=== PATIENT | female | born 2000 | race Caucasian/White ===

== ENCOUNTER → 2018-06-27 | Outpatient (CLI) | payer MEDICAID ==
--- NOTE | 2018-06-27 14:41 | Diagnostic Imaging Report ---
INDICATION: survey. Patient has prior history of inadequate care. TECHNIQUE: Multiple real-time grayscale images were obtained over the gravid uterus. COMPARISON: None FINDINGS: There is a single live fetus in a cephalic presentation. heart rate was recorded at 144 beats per minute. Placenta is anterior. Amniotic fluid volume is normal. survey demonstrates kidneys, bladder and stomach to be unremarkable. brain is unremarkable. There is a four-chamber heart. The spine is unremarkable. There is a three-vessel cord. Cord insertion was not well seen. Biometrical measurements are as follows: Biparietal 7.9 cm, age 31 weeks 4 days. Head circumference 28.4 cm, age 31 weeks 2 days. Abdominal circumference 27.7 cm, age 31 weeks 5 days. Femur length 6.0 cm, age 31 weeks 1 days. Sonographic estimate age: 31 weeks 3 days. Sonographic estimated date of delivery: 08/26/18. Estimated Weight: 1772 gm (+/- 259 gm). LMP percentile: 20%. heart rate: 144 beats per minute. number: 1 of 1. IMPRESSION: Single live IUP approximately 31 weeks 3 days gestational age with estimated date of confinement sonographically of 08/26/2018. No complicating features are seen. survey is unremarkable with exception of the cord insertion not well visualized. Dictated by: Dictated on workstation # [id number]
== END ==
LOC: RAD 13:05
PROVIDERS: ATTEND Obstetrics & Gynecology
DX: Z36.89 Encounter for other specified antenatal screening (principal); Z3A.31 31 weeks gestation of pregnancy
CPT/HCPCS: 76805

== ENCOUNTER 2018-08-09 00:30 | Outpatient (CLI) | payer MEDICAID ==
[~2018-08-09] VITALS: Ht 157.5 cm; Wt 63.6 kg
[2018-08-10] MEDS ORDERED: ACHD5005 PO ×2 (20:07)
[2018-08-10] MEDS ORDERED: Benzocaine/Menthol TP ×2 (20:07)
[2018-08-10] MEDS ORDERED: DOCU100C37 PO ×2 (20:07)
[2018-08-10] MEDS ORDERED: FERR325T18 PO ×2 (20:07)
[2018-08-10] MEDS ORDERED: IBUP-844 PO ×2 (20:07)
[2018-08-10] MEDS ORDERED: DIBU30OI TOP ×2 (20:07)
--- NOTE | 2018-08-13 15:01 | Physician Query-Final Dx ---
TAYLOR DAVENPORT 08/13/18 1501: Clinic Account Progress/Dx Physician Query: Please give diagnosis Date of Service Aug 09, 2018 at 00:30 PRESLEY MA MD 08/14/18 1247: Clinic Account Progress/Dx DIAGNOSIS: Diagnosis False labor at 35 weeks gestation TAYLOR DAVENPORT Aug 13, 2018 15:01 PRESLEY MA MD Aug 14, 2018 12:47
== END 2018-08-09 03:00 | disposition home or self-care (01) ==
LOC: WSo 00:30 → LDRP 00:31 → WSo 03:00
PROVIDERS: ATTEND Obstetrics & Gynecology
DX: O47.03 False labor before 37 completed weeks of gestation, third trimester (principal); Z3A.35 35 weeks gestation of pregnancy
CPT/HCPCS: 99214

== ENCOUNTER 2018-08-10 15:45 | Inpatient (IN) | payer MEDICAID ==
[2018-08-10] VITALS (7 sets, daily range): BP systolic 123–138; BP diastolic 56–96
[2018-08-10] MEDS ORDERED: D5 LR IV SOLUTION 1,000 ML IV SCH (17:18)
[2018-08-10 18:03] LABS: BASOPHILS % (AUTO) 0 % (0-10); EOSINOPHILS # (AUTO) 0.2 10^3/uL (0.0-0.3); EOSINOPHILS % (AUTO) 1 % (0-10); HEMATOCRIT 34 % (35-52); HEMOGLOBIN 11.7 G/DL (11.5-16.0); LYMPHOCYTES # (AUTO) 2.3 X 10^3 (1.0-4.0); LYMPHOCYTES % (AUTO) 11 % (12-44); MEAN CORPUSCULAR HEMOGLOBIN 30 PG (25-34); MEAN CORPUSCULAR HGB CONC 35 G/DL (32-36); MEAN CORPUSCULAR VOLUME 86 FL (80-99); MEAN PLATELET VOLUME 10.7 FL (7.4-10.4); MONOCYTES # (AUTO) 1.9 X 10^3 (0.0-1.0); MONOCYTES % (AUTO) 9 % (0-12); NEUTROPHILS # (AUTO) 15.7 X 10^3 (1.8-7.8); NEUTROPHILS % (AUTO) 78 % (42-75); PLATELET COUNT 322 10^3/uL (130-400); RED BLOOD COUNT 3.94 10^6/uL (4.35-5.85); RED CELL DISTRIBUTION WIDTH 14.3 % (10.0-14.5); WHITE BLOOD COUNT 20.1 10^3/uL (4.3-11.0)
--- NOTE | 2018-08-10 18:24 | History & Physical-OB ---
OB - Chief Complaint & HPI Date/Time Date of Admission: 08/10/2018 Date of Admission: Date seen by a Provider: Aug 10, 2018 Time Seen by a Provider: 18:21 Chief Complaint/History OB-Reason for Admission/Chief: Onset of Labor Hx : 1 Hx Para: 0 Expected Date of Delivery: Aug 21, 2018 Gestational Age in Weeks: 38 Gestational Age in Days: 2 Admission Nurse Assessment Rev: Yes History of Labs O pos Antibody neg RI RPR NR HBsAg NR HCsAg NR GC neg GBS neg Allergies and Home Medications Allergies Coded Allergies: No Known Drug Allergies (Unverified , 08/09/18) Home Medications No Active Prescriptions or Reported Meds Patient Home Medication List Home Medication List Reviewed: Yes OB - History Hx of Present Care: No (late care at 28 weeks) Ultrasounds: Normal mid trimester US Obstetrical Complications: None Medical Complications: Other (tobacco and majijuana use) Patient Past Medical History n/a OB - Admission Exam Physical Exam HEENT: NCAT Heart: Rhythm Normal Lungs: Clear Abdomen: Gravid Extremities: Normal Reflexes: Normal Cervical Dilatation: 4cm Effacement: 100% Station: -1 Membranes: Intact Heart Rate: 130's Accelerations: Accelerations Present Decelerations: No Decelerations Short Term Variability: Present Wraparound Facilitator Variability: Average (6-25) Contractions on Admission: 6-10 Minutes Apart Intensity: Moderate Labs Laboratory Tests Test 08/10/18 17:53 Range/Units White Blood Count 20.1 H 4.3-11.0 10^3/uL Red Blood Count 3.94 L 4.35-5.85 10^6/uL Hemoglobin 11.7 11.5-16.0 G/DL Hematocrit 34 L 35-52 % Mean Corpuscular Volume 86 80-99 FL Mean Corpuscular Hemoglobin 30 25-34 PG Mean Corpuscular Hemoglobin Concent 35 32-36 G/DL Red Cell Distribution Width 14.3 10.0-14.5 % Platelet Count 322 130-400 10^3/uL Mean Platelet Volume 10.7 H 7.4-10.4 FL Neutrophils (%) (Auto) 78 H 42-75 % Lymphocytes (%) (Auto) 11 L 12-44 % Monocytes (%) (Auto) 9 0-12 % Eosinophils (%) (Auto) 1 0-10 % Basophils (%) (Auto) 0 0-10 % Neutrophils # (Auto) 15.7 H 1.8-7.8 X 10^3 Lymphocytes # (Auto) 2.3 1.0-4.0 X 10^3 Monocytes # (Auto) 1.9 H 0.0-1.0 X 10^3 Eosinophils # (Auto) 0.2 0.0-0.3 10^3/uL Basophils # (Auto) 0.0 0.0-0.1 10^3/uL OB - Assessment/Plan/Diagnosis Assessment Assessment: active labor Admission Dx 38 week IUP Active labor Admission Status: Inpatient Order (span 2 midnights) Reason for Inpatient Admission: 38 week IUP Active labor GBS neg Tobacco and THC use Plan Plan: Expectant Management Induction Method: ARACELY EDWARDS DO Aug 10, 2018 6:24 pm
[2018-08-10 18:37] LABS: BAND NEUTROPHILS 0 %; BASOPHILS % (MANUAL) 0 %; EOSINOPHILS % (MANUAL) 0 %; LYMPHOCYTES % (MANUAL) 12 %; MONOCYTES % (MANUAL) 7 %; NEUTROPHILS % (MANUAL) 81 %; RBC MORPH NORMAL
[2018-08-10] MEDS ORDERED: fentaNYL INJECTION 100 MCG/2 ML AMP IVP PRN (18:45)
[2018-08-10] MEDS ORDERED: LIDOCAINE/EPI 2% 1:200,00 (XYLOCAINE) 10 ML VIAL ONE (19:13)
[2018-08-10] MEDS ORDERED: OXYTOCIN/NORMAL SALINE 500 ML IV ONE (19:13)
[2018-08-10] MEDS: OXYTOCIN/NORMAL SALINE 500 ML IV SCH ×2 (19:51→23:55)
--- OUTSIDE RECORDS SUMMARY | 2018-08-10 19:57 | XMS REPORT ---
Author Author DAWIT FRYE [facility] eClinicalWorks Address Unknown Phone Unavailable Care Team Providers Care Respiratory Therapy Aide Name Role Phone DAWIT FRYE CP Unavailable Allergies, Adverse Reactions, Alerts Substance Reaction Event Type N.K.D.A. Info Not Available Non Drug Allergy Problems Problem Type Condition Code Onset Dates Condition Status Problem Bipolar depression F31.30 Active Problem Anxiety F41.9 Active Problem ADHD (attention deficit hyperactivity disorder) F90.9 Active Assessment BCP ( control pills) initiation Z30.011 Active Problem Environmental allergies Z91.09 Active Problem BCP ( control pills) initiation Z30.011 Active Medications Medication Code System Code Instructions Start Date End Date Status Dosage Loratadine [facility] [address]-06 10 mg Orally Once a day 1 tablet BusPIRone HCl [facility] [address]-21 10 MG Orally Twice a day [address] [facility] [address]-41 50 MG Orally Once a day June 19, 2015 1 tablet at bedtime Ortho Tri-Cyclen (28) [facility] [address]-57 0.18/0.215/0.25 MG-35 MCG Orally Once a day Oct 08, [address] [facility] [address]-[address] Calvert to sign for Elaine TAKE ONE CAPSULE BY MOUTH ONCE DAILY IN THE MORNING Procedures Procedure Coding System Code Date URINE TEST CPT-4 28859 Oct 08, 2015 Vital Signs Date/Time: Oct 08, 2015 Temperature 98.1 F BMIPercentile 73.74 % Weight 127.9 lbs Height 62 in BMI 23.39 Index Blood Pressure Diastolic 60 mmHg Blood Pressure Systolic 98 mmHg Cardiac Monitoring Heart Rate 94 bpm Wt Percentile 60.15 % Ht Percentile 19.64 % Results Name Result Date Reference Range Unit Abnormality Flag TEST, URINE (IN HOUSE) Summary Purpose eClinicalWorks Submission
--- OUTSIDE RECORDS SUMMARY | 2018-08-10 19:57 | XMS REPORT ---
Author Author PAXTON DALTON Organization eClinical[employer] Address Unknown Phone Unavailable Care Team Providers Care Big Data Lead Name Role Phone PAXTON DALTON CP Unavailable Allergies No Known Allergies Problems Problem Type Condition Code Onset Dates Condition Status Problem Bipolar depression F31.30 Active Problem Anxiety F41.9 Active Problem ADHD (attention deficit hyperactivity disorder) F90.9 Active Problem Environmental allergies Z91.09 Active Problem BCP ( control pills) initiation Z30.011 Active Medications Medication Code System Code Instructions Start Date End Date Status Dosage Vyvanse [facility] [address]-95 30 MG orally once daily TAKE ONE CAPSULE BY MOUTH ONCE DAILY IN THE MORNING Results No Known Results Summary Purpose eClinicalWorks Submission
--- OUTSIDE RECORDS SUMMARY | 2018-08-10 19:57 | XMS REPORT ---
Author Author ARACELY JEAN Organization [facility] Address [address] [place] [address] Care Team Providers Care Senior Cytogenetic Technologist Name Role Phone ARACELY JEAN Unavailable PROBLEMS Type Condition ICD9-CM Code GGV23-EC Code Onset Dates Condition Status SNOMED Code Problem Anxiety F41.9 Active 55188819 Problem Environmental allergies Z91.09 Active 993685765 Problem BCP ( control pills) initiation Z30.011 Active 12797170 Problem ADHD (attention deficit hyperactivity disorder) F90.9 Active 963219381 Problem Bipolar depression F31.30 Active 29542389 ALLERGIES No Information ENCOUNTERS Encounter Location Date Diagnosis [place] [address] [address] Jun, Acute sinusitis, recurrence not specified, unspecified location J01.90 [place] [address] [address] Jun, Acute sinusitis, recurrence not specified, unspecified location J01.90 and Allergic rhinitis, unspecified seasonality, unspecified trigger J30.9 [place] [address] [place] [id number] [place] [address] Jul, [place] [address] [address] Feb, [place] [address] [address] Jan, [place] [address] [address] Dec, [place] [address] [address] Nov, Attention-deficit hyperactivity disorder, combined type F90.2 ; Unspecified mood [affective] disorder F39 and Generalized anxiety disorder F41.1 [place] [address] [place] [id number] [place] [address] Nov, [place] [address] [place] [id number] [place] [address] Oct, [place] [address] [place] [id number] [place] [address] Oct, [place] [address] [place] [id number] [place] [address] Sep, BCP ( control pills) initiation Z30.[address] [address] Sep, [place] [address] [place] [id number] [place] [address] Jul, TDAP DX V06.1 ; Insect bite 919.4 and Cellulitis 682.9 [place] [address] [place] [id number] [place] [address] Jun, Bipolar I disorder 296.7 ; ADHD (attention deficit hyperactivity disorder), combined type 314.01 and Generalized anxiety disorder 300.02 [place] [address] [place] [address] May, Bipolar affective, mixed 296.60 ; ADHD (attention deficit hyperactivity disorder), 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 and Generalized anxiety disorder 300.02 [place] [address] [place] [address] May, [place] [address] [place] [id number] [place] [address] May, [place] [address] [place] [id number] [place] [address] May, Episodic mood disorder 296.90 ; 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 ; Hallucinogen dependence, 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 ; Cannabis abuse 305.20 ; Alcohol abuse 305.00 and No condition on [place] II V71.09 [facility] [address] [facility] [id number] [place] [address] May, ADHD (attention deficit hyperactivity disorder) 314.01 ; Anxiety 300.00 ; Bipolar affective disorder 296.80 and Allergic rhinitis 477.9 IMMUNIZATIONS No Known Immunizations SOCIAL HISTORY Never Assessed REASON FOR VISIT Requests return call PLAN OF CARE VITAL SIGNS MEDICATIONS Medication Instructions Dosage Frequency Start Date End Date Duration Status Amoxicillin 875 MG Orally every 12 hrs 1 tablet 12h Jun, Jun, 10 day(s) Active RESULTS No Results PROCEDURES No Known procedures INSTRUCTIONS MEDICATIONS ADMINISTERED No Known Medications MEDICAL (GENERAL) HISTORY Type Description Date Medical History ADHD Medical History BIPOLAR Medical History ANXIETY Medical History Seasonal allergies Hospitalization History 2010 Hospitalization History [facility] 2010
--- OUTSIDE RECORDS SUMMARY | 2018-08-10 19:57 | XMS REPORT ---
Author Author SAEID PALOMARES Organization eClinicalWorks Address Unknown Phone Unavailable Care Team Providers Care Embossing Press Operator Apprentice Name Role Phone SAEID PALOMARES Unavailable Allergies No Known Allergies Problems No Known Problems Medications Medication Code System Code Instructions Start Date End Date Status Dosage Vyvanse [facility] [address]-[address] Calvert to sign for Elaine TAKE ONE CAPSULE BY MOUTH ONCE DAILY IN THE MORNING Results No Known Results Summary Purpose eClinicalWorks Submission
--- OUTSIDE RECORDS SUMMARY | 2018-08-10 19:57 | XMS REPORT ---
Author Author MARKIE URENA [facility] eClinicalWorks Address Unknown Phone Unavailable Care Team Providers Care Manager Float Name Role Phone MARKIE URENA CP Unavailable Allergies No Known Allergies Problems Problem Type Condition Code Onset Dates Condition Status Problem Bipolar depression F31.30 Active Problem Anxiety F41.9 Active Problem ADHD (attention deficit hyperactivity disorder) F90.9 Active Problem Environmental allergies Z91.09 Active Problem BCP ( control pills) initiation Z30.011 Active Medications Medication Code System Code Instructions Start Date End Date Status Dosage Vyvanse [facility] [address]-53 30 MG orally once daily TAKE ONE CAPSULE BY MOUTH ONCE DAILY IN THE MORNING Adderall XR [facility] [address]-27 10 MG Orally Once a day AT 1400 Dec 07, 2015 1 capsule Results No Known Results Summary Purpose eClinicalWorks Submission
--- OUTSIDE RECORDS SUMMARY | 2018-08-10 19:57 | XMS REPORT ---
Author Author SAEID PALOMARES Organization eClinicalWorks Address Unknown Phone Unavailable Care Team Providers Care Barrel Rifler Button Name Role Phone SAEID PALOMARES CP Unavailable Allergies, Adverse Reactions, Alerts Substance Reaction Event Type N.K.D.A. Info Not Available Non Drug Allergy Problems Problem Type Condition ICD-9 Code Onset Dates Condition Status Assessment ADHD (attention deficit hyperactivity disorder), combined type 314.01 Active Assessment Generalized anxiety disorder 300.02 Active Assessment Bipolar I disorder 296.7 Active Medications Medication Code System Code Instructions Start Date End Date Status Dosage Seroquel [facility] [address]-78 50 MG Orally Once a day June 19, 2015 1 tablet at bedtime Loratadine [facility] [address]-33 10 mg Orally Once a day 1 tablet Minipress [facility] [address]-31 1 MG Orally HS 3 capsule Lutera [facility] [address]-82 0.1-20 MG-MCG Orally Once a day 1 tablet Vyvanse [facility] [address]-93 30 MG Orally Once a day 1 capsule in the morning BusPIRone HCl [facility] [address]-45 10 MG Orally Twice a day 1 tablet Procedures Procedure Coding System Code Date Office Visit, Est Pt., Level 3 CPT-4 03280 Jul 16, 2015 Vital Signs Date/Time: Jul 16, 2015 Cardiac Monitoring Heart Rate 100 bpm Weight 126.8 lbs Height 62 in Ht Percentile 19.88 % BMI 23.19 Index Blood Pressure Diastolic 64 mmHg Blood Pressure Systolic 96 mmHg BMIPercentile 73.04 % Wt Percentile 59.24 % Results No Known Results Summary Purpose eClinicalWorks Submission
--- OUTSIDE RECORDS SUMMARY | 2018-08-10 19:57 | XMS REPORT ---
Author Author PAXTON DALTON Organization eClinicalWorks Address Unknown Phone Unavailable Care Team Providers Care Mammographer Name Role Phone PAXTON DALTON CP Unavailable Allergies No Known Allergies Problems Problem Type Condition Code Onset Dates Condition Status Problem Bipolar depression F31.30 Active Problem Anxiety F41.9 Active Problem ADHD (attention deficit hyperactivity disorder) F90.9 Active Problem Environmental allergies Z91.09 Active Problem BCP ( control pills) initiation Z30.011 Active Medications Medication Code System Code Instructions Start Date End Date Status Dosage Vyvanse [facility] [address]-08 30 MG orally once daily TAKE ONE CAPSULE BY MOUTH ONCE DAILY IN THE MORNING Results No Known Results Summary Purpose eClinicalWorks Submission
--- OUTSIDE RECORDS SUMMARY | 2018-08-10 19:57 | XMS REPORT ---
Author Author CINDI BURGESS [facility] Address [address] [place] [address] Care Team Providers Care Human Resources Project Manager Name Role Phone CINDI BURGESS Unavailable PROBLEMS Type Condition ICD9-CM Code ZEV05-FM Code Onset Dates Condition Status SNOMED Code Problem ADHD (attention deficit hyperactivity disorder) F90.9 Active 184891208 Problem Bipolar depression F31.30 Active 54436395 Problem BCP ( control pills) initiation Z30.011 Active 86521168 Problem Anxiety F41.9 Active 27186460 Problem Environmental allergies Z91.09 Active 318346829 ALLERGIES Unknown Allergies SOCIAL HISTORY No smoking Hx information available PLAN OF CARE VITAL SIGNS MEDICATIONS Unknown Medications RESULTS No Results PROCEDURES No Known procedures IMMUNIZATIONS No Known Immunizations
--- OUTSIDE RECORDS SUMMARY | 2018-08-10 19:57 | XMS REPORT ---
Author Author ARACELY JEAN Organization [facility] Address [address] [place] [address] Care Team Providers Care Data Warehouse Specialist Name Role Phone ARACELY JEAN Unavailable PROBLEMS Type Condition ICD9-CM Code VIM48-PO Code Onset Dates Condition Status SNOMED Code Problem Anxiety F41.9 Active 33356361 Problem Environmental allergies Z91.09 Active 146636867 Problem BCP ( control pills) initiation Z30.011 Active 81892101 Problem ADHD (attention deficit hyperactivity disorder) F90.9 Active 613547946 Problem Bipolar depression F31.30 Active 39951986 ALLERGIES No Known Allergies ENCOUNTERS Encounter Location Date Diagnosis [facility] [address] [address] Jun, Acute sinusitis, recurrence not specified, unspecified location J01.90 [place] [address] [address] Jun, Acute sinusitis, recurrence not specified, unspecified location J01.90 and Allergic rhinitis, unspecified seasonality, unspecified trigger J30.9 [place] [address] [place] [id number] [place] [address] Jul, [facility] [address] [place] [id number] [place] [address] Feb, [place] [address] [place] [id number] [place] [address] Jan, [place] [address] [address] Dec, [place] [address] [place] [id number] [place] [address] Nov, Attention-deficit hyperactivity disorder, combined type F90.2 ; Unspecified mood [affective] disorder F39 and Generalized anxiety disorder F41.1 [place] [address] [place] [address] Nov, [facility] [address] [place] [id number] [place] [address] Oct, [place] [address] [place] [id number] [place] [address] Oct, [place] [address] [place] [id number] [place] [address] Sep, BCP ( control pills) initiation Z30.[address] [address] Sep, [place] [address] [place] [id number] [place] [address] Jul, TDAP DX V06.1 ; Insect bite 919.4 and Cellulitis 682.9 [place] [address] [place] [id number] [place] [address] Jun, Bipolar I disorder 296.7 ; ADHD (attention deficit hyperactivity disorder), combined type 314.01 and Generalized anxiety disorder 300.02 [place] [address] [place] [address] May, Bipolar affective, mixed 296.60 ; ADHD (attention deficit hyperactivity disorder), 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 and Generalized anxiety disorder 300.02 [facility] [address] [place] [address] May, [place] [address] [place] [id number] [place] [address] May, [place] [address] [place] [id number] [place] [address] May, Episodic mood disorder 296.90 ; 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 ; Hallucinogen dependence, 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 ; Cannabis abuse 305.20 ; Alcohol abuse 305.00 and No condition on [place] II V71.09 [facility] [address] [facility] [id number] [address] May, ADHD (attention deficit hyperactivity disorder) 314.01 ; Anxiety 300.00 ; Bipolar affective disorder 296.80 and Allergic rhinitis 477.9 IMMUNIZATIONS No Known Immunizations SOCIAL HISTORY Never Assessed REASON FOR VISIT cough/sinus infection, constant nasal drainage, productive cough, brown/green sputum, wheezing x 4 days, denies fever----LakeshiattRGeraldine, 31 weeks , sees Dr. Parekh PLAN OF CARE Activity Details Follow Up prn Reason:sinus infection VITAL SIGNS Height 62 in 2018-06-21 Weight 126 lbs 2018-06-21 Temperature 98.1 degrees Fahrenheit 2018-06-21 Heart Rate 90 bpm 2018-06-21 Respiratory Rate 20 2018-06-21 BMI 23.04 kg/m2 2018-06-21 Blood pressure systolic 104 mmHg 2018-06-21 Blood pressure diastolic 70 mmHg 2018-06-21 MEDICATIONS Medication Instructions Dosage Frequency Start Date End Date Duration Status Zyrtec Allergy 10 mg Orally Once a day 1 tablet 24h Jun, Jul, 30 day(s) Active Flonase Allergy Relief 50 MCG/ACT Nasally Once a day 1 spray in each nostril 24h Jun, 30 day(s) Active RESULTS No Results PROCEDURES No Known procedures INSTRUCTIONS MEDICATIONS ADMINISTERED No Known Medications MEDICAL (GENERAL) HISTORY Type Description Date Medical History ADHD Medical History BIPOLAR Medical History ANXIETY Medical History Seasonal allergies Hospitalization History 2010 Hospitalization History [facility] 2010
--- OUTSIDE RECORDS SUMMARY | 2018-08-10 19:57 | XMS REPORT ---
Author Author PAXTON DALTON [facility] eClinicalWorks Address Unknown Phone Unavailable Care Team Providers Care Soil Biology Teacher Name Role Phone PAXTON DALTON Unavailable Allergies, Adverse Reactions, Alerts Substance Reaction Event Type N.K.D.A. Info Not Available Non Drug Allergy Problems Problem Type Condition ICD-9 Code Onset Dates Condition Status Assessment Insect bite 919.4 Active Assessment Cellulitis 682.9 Active Assessment TDAP DX V06.1 Active Medications Medication Code System Code Instructions Start Date End Date Status Dosage Vyvanse [facility] [address]-53 30 MG Orally Once a day 1 capsule in the morning Minipress [facility] [address]-12 1 MG Orally HS 3 capsule Loratadine [facility] [address]-67 10 mg Orally Once a day 1 tablet Lutera [facility] [address]-45 0.1-20 MG-MCG Orally Once a day 1 tablet Bactrim DS [facility] [address]-20 800-160 MG Orally 2 times a day Jul 21, 2015 Jul 31, 2015 1 tablet Seroquel [facility] [address]-21 50 MG Orally Once a day June 19, 2015 1 tablet at bedtime BusPIRone HCl [facility] [address]-15 10 MG Orally Twice a day 1 tablet Procedures Procedure Coding System Code Date THER/PROPH/DIAG INJ, SC/IM CPT-4 27809 Jul 21, 2015 TDAP (BOOSTRIX) CPT-4 68516 Jul 21, 2015 ROCEPHIN 1 GM (IM) CPT-4 J0696 Jul 21, 2015 Office Visit, Est Pt., Level 3 CPT-4 70269 Jul 21, 2015 Vital Signs Date/Time: Jul 21, 2015 Temperature 97.9 F BMIPercentile 70.04 % Weight 124.8 lbs Height 62 in BMI 22.82 Index Blood Pressure Diastolic 72 mmHg Blood Pressure Systolic 98 mmHg Cardiac Monitoring Heart Rate 100 bpm Wt Percentile 55.58 % Ht Percentile 19.88 % Results No Known Results Immunizations Vaccine Administration Date TDAP (BOOSTRIX) Jul 21, 2015 Summary Purpose eClinicalWorks Submission
--- OUTSIDE RECORDS SUMMARY | 2018-08-10 19:58 | XMS REPORT ---
Author Author SYLVIA NIETO Organization [employer] Address Unknown Phone Unavailable Care Team Providers Care Painter Interior Finish Name Role Phone SYLVIA NIETO CP Unavailable Allergies, Adverse Reactions, Alerts Substance Reaction Event Type N.K.D.A. Info Not Available Non Drug Allergy Problems Problem Type Condition Code Onset Dates Condition Status Assessment Generalized anxiety disorder F41.1 Active Problem Bipolar depression F31.30 Active Problem Anxiety F41.9 Active Problem ADHD (attention deficit hyperactivity disorder) F90.9 Active Assessment Attention-deficit hyperactivity disorder, combined type F90.2 Active Assessment Unspecified mood [affective] disorder F39 Active Problem Environmental allergies Z91.09 Active Problem BCP ( control pills) initiation Z30.011 Active Medications Medication Code System Code Instructions Start Date End Date Status Dosage Loratadine [facility] [address]-72 10 mg Orally Once a day 1 tablet BusPIRone HCl [facility] [address]-59 15 MG Orally Twice a day 1 tablet Seroquel [facility] [address]-68 50 MG Orally Once a day AT HS June 19, 2015 1 tablet at bedtime Vyvanse [facility] [address]-19 30 MG orally once daily TAKE ONE CAPSULE BY MOUTH ONCE DAILY IN THE MORNING Adderall XR [facility] [address]-93 10 MG Orally Once a day AT 1400 Dec 07, 2015 1 capsule Procedures Procedure Coding System Code Date Office Visit, Est Pt., Level 5 CPT-4 90340 Dec 07, 2015 Vital Signs Date/Time: Dec 07, 2015 Temperature 98.4 F BMIPercentile 54.4 % Weight 117.4 lbs Height 62 in BMI 21.47 Index Blood Pressure Diastolic 58 mmHg Blood Pressure Systolic 94 mmHg Cardiac Monitoring Heart Rate 104 bpm Wt Percentile 38.26 % Ht Percentile 19.5 % Results No Known Results Summary Purpose [employer] Submission
--- OUTSIDE RECORDS SUMMARY | 2018-08-10 19:58 | XMS REPORT ---
Author Author SAEID PALOMARES Organization [employer] Address Unknown Phone Unavailable Care Team Providers Care Industrial Relations Officer Name Role Phone SAEID PALOMARES Unavailable Allergies No Known Allergies Problems Problem Type Condition Code Onset Dates Condition Status Problem Bipolar depression F31.30 Active Problem Anxiety F41.9 Active Problem ADHD (attention deficit hyperactivity disorder) F90.9 Active Problem Environmental allergies Z91.09 Active Problem BCP ( control pills) initiation Z30.011 Active Medications Medication Code System Code Instructions Start Date End Date Status Dosage Amyyvlorenzoe [facility] [address]-52 30 MG orally once daily TAKE ONE CAPSULE BY MOUTH ONCE DAILY IN THE MORNING Results No Known Results Summary Purpose [employer] Submission
--- NOTE | 2018-08-10 20:05 | OB Labor & Delivery Record ---
L&D History Date of Service Date of Service: Aug 10, 2018 History Expected Date of Delivery: Aug 21, 2018 Gestational Age in Weeks: 38 Hx : 1 Hx Para: 0 Complications Events: Routine care (late pnc) Operative Indications (Cesarea: N/A-Vaginal Delivery Intrapartal Events: None L&D Stage1 Stage One Onset of Labor - Date: Aug 10, 2018 Monitors and Tracing Monitor Mode: External Heart Rate: 120 Monitor Decelerations: None Station: -1 Award Machine Operator Variability: Average (6-10) Short Term Variability: Present Presentation: Vertex Vital Signs VS - Last 72 Hours, by Label 08/10/18 08/10/18 18:15 18:45 Temp 97.8 Pulse 101 92 Resp 20 20 B/P (MAP) 136/94 (108) 125/91 (102) O2 Delivery Room Air Room Air Rupture of Membranes Spontaneous Ruture of Membrane: No Amniotic Membrane Rupture Time: 1809 Amniotic Membrane Fluid Desc.: Clear Vaginal Bleeding Description: Normal Show Progress/Notes Patient progressed with no other augmentation than AROM. 1 mg dilaudid was given one time for pain control L&D Stage2 Stage Two Stage II Date: Aug 10, 2018 Monitors and Tracing Monitor Mode: External Heart Rate: 120 Monitor Accelerations: Uniform Monitor Decelerations: Variable Award Machine Operator Variability: Average (6-10) Short Term Variability: Present Position: Right Occiput Anterior Presentation: Vertex Cord Descript/Complications Cord Vessel Description: 3 Vessels Delivery Type Delivery Method: Spontaneous Vaginal Anterior Shoulder: Left Episiotomy/Perineal Laceration Laceraction(s)/Extensions: Yes Episiotomy Description: Right Mediolateral Degree (describe repair) RML repaired in usual fashion using 3-0 and 2-0 vicryl suture Condition of Delivery 1 minute Comment: 8 5 minute Comment: 9 Notes live female infant weight 6lbs 5oz Condition of Condition of Infant: Living Exam: No Observed Abnormalities Resuscitation Resuscitation: N/A - Spontaneous Resp L&D Stage3 Stage Three Stage III Date: Aug 10, 2018 Pictocin Pitocin Administration Comment: wide open 30 mu at delivery of placenta Placenta Delivery Placenta Delivery: Spontaneous Delivery Summary Summary Estimated blood loss (mL): 350 Attending at delivery: Aracely Puentes DO Condition of Delivery Examined: Cervix Examined, Uterus Explored Post Hemorrhage: No Condition of Mother stable Condition of Infant (s) stable ARACELY PUENTES DO Aug 10, 2018 20:05
--- NOTE | 2018-08-10 20:06 | Discharge Inst-Women's Service ---
Discharge Inst-Women's Serv Depart Medication/Instructions New, Converted or Re-Newed RX: RX on Chart Final Diagnosis PPD 2 NVD Consults/Follow Up Additional Follow Up: Yes Orders/Referrals Dr. Puentes in 6 weeks Activity Activity: Activity as Tolerated Driving Instructions: No Driving for 1 Week NO SMOKING: NO SMOKING Nothing Inside Vagina: No Douching, No [place], No Tampons Diet Discharge Diet: No Restrictions Symptoms to Report to : Bleeding Excessive, Pain Increased, Fever Over 101 Degrees F, Vaginal Bleeding Increase, Questions/Concerns For Any Problems or Questions: Contact Your Physician ARACELY PUENTES DO Aug 10, 2018 20:06
[2018-08-10] MEDS ORDERED: DIBU30OI TOP ×2 (20:07)
[2018-08-10] MEDS ORDERED: IBUP-844 PO ×2 (20:07)
[2018-08-10] MEDS ORDERED: FERR325T18 PO ×2 (20:07)
[2018-08-10] MEDS ORDERED: Benzocaine/Menthol TP ×2 (20:07)
[2018-08-10] MEDS ORDERED: ACHD5005 PO ×2 (20:07)
[2018-08-10] MEDS ORDERED: DOCU100C37 PO ×2 (20:07)
[2018-08-10] MEDS ORDERED: TETANUS,DIPTH,PERTUSS P/F (BOOSTRIX) 0.5 ML VIAL IM ONE (20:15)
[2018-08-10] MEDS ORDERED: WITCH HAZEL(TUCKS) 40 EA JAR TOP PRN (20:15)
[2018-08-10] MEDS ORDERED: DIBUCAINE (NUPERCAINAL) 1% OINT 30 GM TOP PRN (20:15)
[2018-08-10] MEDS ORDERED: MEASLES,MUMPS,RUBELLA 1 EA INJ SQ ONE (20:15)
[2018-08-10] MEDS ORDERED: BENZOCAINE/MENTHOL (DERMOPLAST) 56 ML CAN TP PRN (20:15)
[2018-08-10] MEDS: IBUPROFEN 600 MG (MOTRIN) TAB PO SCH (20:21)
[2018-08-10] MEDS ORDERED: CATHETER FLUSH 10 ML SYR IV SCH ×2 (22:00)
[2018-08-10] MEDS ORDERED: METHYLERGONOVINE 0.2 MG/ML (METHERGINE) AMP ONE (23:44)
[2018-08-11] MEDS ORDERED: METHYLERGONOVINE 0.2 MG/ML (METHERGINE) AMP IM ONE (00:45)
[2018-08-11] MEDS: HYDROcodone/APAP 5 MG/325 MG (LORTAB) TAB PO PRN ×2 (00:57→19:21)
[2018-08-11] MEDS: IBUPROFEN 600 MG (MOTRIN) TAB PO SCH ×4 (02:00→22:09)
[2018-08-11 06:12] LABS: BASOPHILS % (AUTO) 0 % (0-10); EOSINOPHILS # (AUTO) 0.2 10^3/uL (0.0-0.3); EOSINOPHILS % (AUTO) 1 % (0-10); HEMATOCRIT 25 % (35-52); LYMPHOCYTES # (AUTO) 3.4 X 10^3 (1.0-4.0); LYMPHOCYTES % (AUTO) 18 % (12-44); MEAN CORPUSCULAR HEMOGLOBIN 31 PG (25-34); MEAN CORPUSCULAR HGB CONC 36 G/DL (32-36); MEAN CORPUSCULAR VOLUME 87 FL (80-99); MEAN PLATELET VOLUME 10.9 FL (7.4-10.4); MONOCYTES # (AUTO) 1.7 X 10^3 (0.0-1.0); MONOCYTES % (AUTO) 9 % (0-12); NEUTROPHILS # (AUTO) 13.7 X 10^3 (1.8-7.8); NEUTROPHILS % (AUTO) 72 % (42-75); PLATELET COUNT 243 10^3/uL (130-400); RED BLOOD COUNT 2.91 10^6/uL (4.35-5.85); RED CELL DISTRIBUTION WIDTH 13.8 % (10.0-14.5); WHITE BLOOD COUNT 19.1 10^3/uL (4.3-11.0)
[2018-08-11 08:29] VITALS: BP 121/80
[2018-08-11] MEDS: PRENATAL VITAMIN 1 EA TAB PO SCH (08:32)
[2018-08-11] MEDS: FERROUS SULF 325 MG (IRON) TAB PO SCH (08:32)
[2018-08-11] MEDS: DOCUSATE SODIUM 100 MG (COLACE) CAP PO SCH ×2 (08:32→09:11)
--- NOTE | 2018-08-11 08:47 | Progress Note-Standard ---
Standard Progress Note Progress Notes/Assess & Plan Date Seen by a Provider: Aug 11, 2018 Time Seen by a Provider: 08:46 Progress/Assessment & Plan This patient is without complaint. She is ambulating, voiding, tolerating oral intake well, has good pain control. Patient denies chest pain, denies shortness of breath, denies nausea vomiting, denies headache. Patient is requesting discharge home. Vital Signs 08/11/18 08:29 Temp 99.2 Pulse 76 Resp 18 B/P (MAP) 121/80 (94) Pulse Ox 100 O2 Delivery Room Air Vital signs are stable. Patient is afebrile. Fundus is firm below the umbilicus and nontender. Extremities show no clubbing cyanosis. There is no Homans sign. Assessment and plan day number 1 status post term spontaneous vaginal delivery doing well. Plan is for routine convalescence care with discharge home today or tomorrow as preferred by patient Final Diagnosis Term spontaneous vaginal delivery PRESLEY MA MD Aug 11, 2018 8:47 am
[2018-08-11 15:05] VITALS: BP 126/83
[2018-08-11] MEDS ORDERED: FLU QUADRIvalent (5+ YOA) 2018-2019 (AFLURIA) 0.5 ML IM ONE (17:00)
[2018-08-11 22:09] VITALS: BP 131/81
[2018-08-12] MEDS: DOCUSATE SODIUM 100 MG (COLACE) CAP PO SCH ×2 (01:52→09:50)
[2018-08-12 03:54] VITALS: BP 122/77
[2018-08-12] MEDS: IBUPROFEN 600 MG (MOTRIN) TAB PO SCH ×2 (03:54→09:49)
--- NOTE | 2018-08-12 09:27 | Progress Note-Standard ---
Standard Progress Note Progress Notes/Assess & Plan Date Seen by a Provider: Aug 12, 2018 Time Seen by a Provider: 09:25 Progress/Assessment & Plan This patient is without complaint. She is ambulating, voiding, tolerating oral intake well, has good pain control. Patient denies chest pain, denies shortness of breath, denies nausea vomiting, denies headache. Patient is requesting discharge home. Vital Signs 08/11/18 08:29 Temp 99.2 Pulse 76 Resp 18 B/P (MAP) 121/80 (94) Pulse Ox 100 O2 Delivery Room Air Vital signs are stable. Patient is afebrile. Fundus is firm below the umbilicus and nontender. Extremities show no clubbing cyanosis. There is no Homans sign. Assessment and plan day number 1 status post term spontaneous vaginal delivery doing well. Plan is for routine convalescence care with discharge home today or tomorrow as preferred by patient August 12, 2018 Patient is without complaint. She is ambulating, voiding, tolerating oral intake well has good pain control and is requesting discharge home. Vital Signs 08/12/18 03:54 Temp 98.5 Pulse 72 Resp 18 B/P (MAP) 122/77 (92) Pulse Ox 98 O2 Delivery Room Air Vital signs are stable. Patient is afebrile. Fundus is firm below the umbilicus and nontender. Extremities show no clubbing cyanosis. There is no Homans sign. Assessment and plan day number 2 status post term spontaneous vaginal delivery doing well. Plan is for discharge home Final Diagnosis Term spontaneous vaginal delivery PRESLEY MA MD Aug 12, 2018 9:27 am
[2018-08-12] MEDS ORDERED: TETANUS,DIPTH,PERTUSS P/F (BOOSTRIX) 0.5 ML VIAL IM ONE (09:38)
[2018-08-12 09:45] VITALS: BP 119/79
[2018-08-12] MEDS: PRENATAL VITAMIN 1 EA TAB PO SCH (09:49)
[2018-08-12] MEDS: FERROUS SULF 325 MG (IRON) TAB PO SCH (09:50)
--- NOTE | 2018-08-14 10:04 | Physician Query-Anemia ---
Physician Query-Anemia Query to Physician: Provider's Document Request-Please contact dietary server listed on document for more information. Dear Provider, In cases where a patient has anemia and blood loss, the healthcare receptionist can never assume a cause and effect relationship. Please document the type of the anemia, if known, on this form as an addendum: *Please exercise your independent, professional judgement when responding. A specific answer is not anticipated or expected. Based on a review/Patient has: Hgb/Hct: On 08/10/18 patient left OB unit. Upon arrival back on OB unit patient was bleeding (baseball size clots-according to nursing notes) Hgb/Hct: 08/10/18 - 11.7 Hgb/Hct: 08/11/18 - 9.0 Medications: Pictocin 500ml and Methergine - Patient discharged with Ferrous Sulfate 325 Type of anemia, if known: Anemia due to: acute blood loss If you have questions please contact: Mortgage Loan Coordinator: Haylee Underwood Ext: [phone] Thank you for your time and cooperation. Clinical Bias Machine Operator/Mortgage Loan Coordinator This is a permanent part of the medical record ELMER UNDERWOOD Aug 14, 2018 10:04 ARACELY PUENTES DO Aug 14, 2018 13:21
== END 2018-08-12 13:50 | disposition home or self-care (01) | DRG 775 ==
LOC: WSo 15:45 → LDRP 16:02 → WSo 17:30 → LDRP 21:12
PROVIDERS: ADMIT Obstetrics & Gynecology; ATTEND Obstetrics & Gynecology
PROC: 10E0XZZ Delivery of Products of Conception, External Approach (ICD-10-PCS; principal; 2018-08-10)
PROC: 0W8NXZZ Division of Female Perineum, External Approach (ICD-10-PCS; 2018-08-10)
DX: O99.333 Smoking (tobacco) complicating pregnancy, third trimester (principal); F17.210 Nicotine dependence, cigarettes, uncomplicated; O99.03 Anemia complicating the puerperium; D62 Acute posthemorrhagic anemia; O99.323 Drug use complicating pregnancy, third trimester; F12.90 Cannabis use, unspecified, uncomplicated; Z3A.38 38 weeks gestation of pregnancy; Z37.0 Single live birth; Z23 Encounter for immunization
CPT/HCPCS: 36415; 85007; 85025; 85027; 86850; 86900; 86901; 90686; 90715; 99212

== ENCOUNTER 2020-06-29 18:32 | Emergency (ER) | payer MEDICAID ==
[~2020-06-29] VITALS: Ht 165 cm; Wt 54.5 kg
[~2020-06-29 18:32] MED LIST: ACHD5005 PO; Benzocaine/Menthol TP; DIBU30OI TOP; DOCU100C37 PO; FERR325T18 PO; IBUP-844 PO
--- OUTSIDE RECORDS SUMMARY | 2020-06-29 18:41 | XMS REPORT ---
Author Author Mariaelena PIERSON Organization [facility] Address [address] [place] [address] Care Team Providers Care Chief Nurse Executive Name Role Phone PIERSON, JOSETTE Unavailable PROBLEMS Type Condition ICD9-CM Code [id number] Code Onset Dates Condition S tatus SNOMED Code Problem Major depressive disorder, recurrent, mild F33.0 Active 38004662 Problem Generalized anxiety disorder F41.1 A ctive 14067175 Problem Bipolar depression F31.30 Active 4 2797678 Problem Anxiety F41.9 Active 50882586 Problem ADHD (attention deficit hyperactivity disorder) F9 0.9 Active 952387698 ALLERGIES No Information ENCOUNTERS Encounter Location Date Diagnosis [facility] [address] [facility] [id number] [address] [place] [phone] Nov, [facility] [address] [facility] [id number] [address] [place] [phone] Oct, ADHD (attention deficit hype ractivity disorder) F90.9 ; Generalized anxiety disorder F41.1 and Major depressive disorder, recurrent, mild F33.0 [facility] [address] [id number] [address] [place] [id number] Sep, [facility] [address] [facility] [id number] [address] [place] [phone] Aug, Acute bronchitis J20.9 and A cute upper respiratory infection J06.9 [facility] [address] [facility] [id number] [address] [place] [phone] Aug, [facility] [address] [facility] [id number] [address] [place] [phone] Jun, Acute sinusitis, recurrence not specified, unspecified location J01.90 [facility] [address] [address] Jun, Acute sinusitis, recurrence not specified, unspecified location J01.90 and Allergic rhinitis, unspecified seasonality, unspecified trigger J30.9 [facility] [address] [phone] 06 Jul, 2016 [facility] [address] [address] Feb, [facility] [address] [address] Jan, [facility] [address] [address] Dec, [facility] [address] [address] Nov, Attention-deficit hyperactiv ity disorder, combined type F90.2 ; Unspecified mood [affective] disorder F39 and Generalized anxiety disorder F41.1 [facility] [address] [address] Nov, [facility] [address] [address] Oct, [facility] [address] [address] Oct, [facility] [address] [address] Sep, BCP ( control pills) in itiation Z30.011 [facility] [address] [address] Sep, [facility] [address] [address] Jul, TDAP DX V06.1 ; Insect bite 919.4 and Cellulitis 682.9 [facility] [address] [address] Jun, Bipolar I disorder 296.7 ; A DHD (attention deficit hyperactivity disorder), combined type 314.01 and Generalized anxiety disorder 300.02 [facility] [address] 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 [id number] [address] [place] [phone] May, ADHD (attention deficit hype ractivity disorder) 314.01 ; Anxiety 300.00 ; Bipolar affective disorder 296.80 and Allergic rhinitis 477.9 IMMUNIZATIONS No Known Immunizations SOCIAL HISTORY Never Assessed REASON FOR VISIT Intake PLAN OF CARE Activity Details Follow Up 3 Weeks Reason: VITAL SIGNS MEDICATIONS Medication Instructions Dosage Frequency Start Date End Date Duration S tatus Albuterol Sulfate HFA 108 (90 Base) MCG/ACT Inhalation every 4-6 hours as needed 2 puffs as needed Aug, 30 days Activ e Cetirizine HCl 10 MG Orally Once a day 1 tablet 24h Aug, 30 day(s) Active Adderall XR 10 MG Orally Once a day 1 capsule in the morning 24h Not-Taking Seroquel XR 50 MG Orally Once a day 1 tablet in the evening 24h 30 day(s) Not-Taking BusPIRone HCl 15 MG Orally Twice a day 1 tablet 12h Not-Taking Vyvanse 30 MG Orally Once a day 1 capsule in the morning 24h Not-Taking RESULTS No Results PROCEDURES Procedure Date Ordered Result Body Site Psych diagnostic evaluation, established patient Nov 05, 2018 INSTRUCTIONS MEDICATIONS ADMINISTERED No Known Medications MEDICAL (GENERAL) HISTORY Type Description Date Medical History ADHD Medical History BIPOLAR Medical History ANXIETY Medical History Seasonal allergies Surgical History No Surgical history information Hospitalization History [facility] 2010 Hospitalization History [facility] 2010 Hospitalization History childbirth 08/2018
--- OUTSIDE RECORDS SUMMARY | 2020-06-29 18:41 | XMS REPORT ---
Author Author Mariaelena BURGESS Organization [facility] Address [address] [place] [address] Care Team Providers Care Senior Account Director Name Role Phone ADITYA CINDI Unavailable PROBLEMS Type Condition ICD9-CM Code [id number] Code Onset Dates Condition S tatus SNOMED Code Problem Anxiety F41.9 Active 35907019 Problem ADHD (attention deficit hyperactivity disorder) F9 0.9 Active 837669033 Problem Bipolar depression F31.30 Active 4 8426903 ALLERGIES No Information ENCOUNTERS Encounter Location Date Diagnosis [facility] [address] [id number] [address] [place] [phone] Sep, [facility] [address] [place] [id number] [address] [place] [phone] Aug, Acute bronchitis J20.9 and A cute upper respiratory infection J06.9 [facility] [address] [place] [id number] [address] [place] [phone] Aug, [facility] [address] [place] [id number] [address] [place] [address] Jun, Acute sinusitis, recurrence not specified, unspecified location J01.90 [facility] [address] [place] [id number] [address] [place] [address] Jun, Acute sinusitis, recurrence not specified, unspecified location J01.90 and Allergic rhinitis, unspecified seasonality, unspecified trigger J30.9 [facility] [address] [facility] [id number] [address] [place] [phone] Jul, [facility] [address] [place] [id number] [place] [phone] Feb, [facility] [address] [place] [address] Jan, [facility] [address] [place] [address] Dec, [facility] [address] [place] [id number] [place] [phone] Nov, Attention-deficit hyperactiv ity disorder, combined type F90.2 ; Unspecified mood [affective] disorder F39 and Generalized anxiety disorder F41.1 [facility] [address] [place] [id number] [place] [phone] Nov, [facility] [address] [address] Oct, [facility] [address] [address] Oct, [facility] [address] [address] Sep, BCP ( control pills) in itiation Z30.011 [facility] [address] [address] Sep, [facility] [address] [address] Jul, TDAP DX V06.1 ; Insect bite 919.4 and Cellulitis 682.9 [facility] [address] [place] [id number] [place] [address] Jun, Bipolar I disorder 296.7 ; A DHD (attention deficit hyperactivity disorder), combined type 314.01 and Generalized anxiety disorder 300.02 [facility] [address] [place] [id number] [place] [address] May, Bipolar affective, mixed 296 .60 ; ADHD (attention deficit hyperactivity disorder), 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 and Generalized anxiety disorder 300.02 [facility] [address] [address] May, [facility] [address] [facility] [id number] [address] [place] [phone] May, [facility] [address] [facility] [id number] [address] [place] [address] May, Episodic mood disorder 296.9 0 ; 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 ; Hallucinogen dependence, 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 ; Cannabis abuse 305.20 ; Alcohol abuse 305.00 and No condition on [place] II V71.09 [facility] [address] [facility] [id number] [address] [place] [phone] May, ADHD (attention deficit hype ractivity disorder) 314.01 ; Anxiety 300.00 ; Bipolar affective disorder 296.80 and Allergic rhinitis 477.9 IMMUNIZATIONS No Known Immunizations SOCIAL HISTORY Never Assessed REASON FOR VISIT LVM- failed to contact PLAN OF CARE VITAL SIGNS MEDICATIONS Unknown Medications RESULTS No Results PROCEDURES No Known procedures INSTRUCTIONS MEDICATIONS ADMINISTERED No Known Medications MEDICAL (GENERAL) HISTORY Type Description Date Medical History ADHD Medical History BIPOLAR Medical History ANXIETY Medical History Seasonal allergies Surgical History No Surgical history information Hospitalization History [facility] 2010 Hospitalization History [facility] 2010 Hospitalization History childbirth 08/2018
--- OUTSIDE RECORDS SUMMARY | 2020-06-29 18:42 | XMS REPORT | Continuity of Care Document ---
Author Organization Unknown Address Unknown Phone Unavailable Allergies Active Description Code Type Severity Reaction Onset Reported/Identified Relationship to Patient Clinical Status Yes NO KNOWN DRUG ALLERGIES UNKNOWN NO KNOWN DRUG ALLERG Yes NO KNOWN DRUG ALLERGIES UNKNOWN NO KNOWN DRUG ALLERG Yes NO KNOWN DRUG ALLERGIES UNKNOWN UNKNOWN Yes No Known Drug Allergies [id number] Drug Allergy Unknown N/A 08/09/2018 Medications Medication Packaging Start Date St op Date Route Dosage Sig KETOROLAC VIAL INJ 30 MG/CC (TORADOL VIAL) MG 11/10/2018 11/10/2018 ONCE&1737 TETANUS,DIPTH,PERT ADULT INJ 0 (ADACEL SYRINGE) ml 07/11/2019 07/11/2019 ONCE&1050 Problems Date Dx Coded Attending Type Code Diagnosis Diagnosed By 06/01/2017 Pedro Simpson 945.25 BLISTERS WITH EPIDERMAL LOSS DUE TO BURN [SECOND DEGREE] OF KNEE 06/01/2017 Pedro Simpson T24.222A BURN OF SECOND DEGREE OF LEFT KNEE, INITIAL ENCOUNTER 07/13/2018 Ot Z36.89 ENC OUNTER FOR OTHER SPECIFIED 07/13/2018 Ot Z3A.31 31 WEEKS GESTATION OF 08/03/2018 Ot Z36.89 ENC OUNTER FOR OTHER SPECIFIED 08/03/2018 Ot Z3A.31 31 WEEKS GESTATION OF 08/09/2018 Ot Z36.89 ENC OUNTER FOR OTHER SPECIFIED 08/09/2018 Ot Z3A.31 31 WEEKS GESTATION OF 08/09/2018 ARACELY PUENTES DO Ot O47.03 FALSE LABOR BEFORE 37 COMPLETED WEEKS OF 08/09/2018 ARACELY PUENTES DO Ot Z3A.35 35 WEEKS GESTATION OF 08/12/2018 ARACELY PUENTES DO Ot D6 2 ACUTE POSTHEMORRHAGIC ANEMIA 08/12/2018 ARACELY PUENTES DO Ot F12.90 CANNABIS USE, UNSPECIFIED, UNCOMPLICATED 08/12/2018 ARACELY PUENTES DO Ot F17.210 NICOTINE DEPENDENCE, CIGARETTES, UNCOMPL 08/12/2018 ARACELY PUENTES DO Ot O99.03 ANEMIA COMPLICATING THE PUERPERIUM 08/12/2018 ARACELY PUENTES DO Ot O99.323 DRUG USE COMPLICATING , THIRD T 08/12/2018 ARACELY PUENTES DO Ot O99.333 SMOKING (TOBACCO) COMPLICATING 08/12/2018 ARACELY PUENTES DO Ot Z2 3 ENCOUNTER FOR IMMUNIZATION 08/12/2018 ARACELY PUENTES DO Ot Z37.0 SINGLE LIVE 08/12/2018 ARACELY PUENTES DO Ot Z3A.38 38 WEEKS GESTATION OF 08/15/2018 ARACELY PUENTES DO Ot O47.03 FALSE LABOR BEFORE 37 COMPLETED WEEKS OF 08/15/2018 ARACELY PUENTES DO Ot Z3A.35 35 WEEKS GESTATION OF 11/10/2018 LanierQian A A 522.5 PERIAPICAL ABSCESS WITHOUT SINUS 11/10/2018MarchLanierShefaliQian A A K04.7 PERIAPICAL ABSCESS WITHOUT SINUS 07/11/2019 MATI MELO APRN 873 .43 OPEN WOUND OF LIP, UNCOMPLICATED 07/11/2019 MATI MELO APRN K04 .7 PERIAPICAL ABSCESS WITHOUT SINUS 07/11/2019 MATI MELO APRN S01.511A LACERATION WITHOUT FOREIGN BODY OF LIP, INITIAL ENCOUN TER Procedures Code Description Performed By Santiago floyd On [id number] DI VISION OF FEMALE PERINEUM, EXTERNAL AP 08/10/2018 [id number] DE LIVERY OF PRODUCTS OF CONCEPTION, EXTE 08/10/2018 Results Test Result Range Complete blood count (CBC) with automate d white blood cell (WBC) differential - 08/10/18 17:53 Blood leukocytes automated count (number/volume) 20.1 10*3/uL 4.3-11.0 Blood erythrocytes automated count (number/volume) 3.94 10*6/uL 4.35-5.85 Venous blood hemoglobin measurement (mass/volume) 11.7 g/dL 11.5-16.0 Blood hematocrit (volume fraction) 34 % 35-52 Automated erythrocyte mean corpuscular volume 86 [ foz_us] 80-99 Automated erythrocyte mean corpuscular h emoglobin (mass per erythrocyte) 30 pg 25-34 Automated erythrocyte mean corpuscular h emoglobin concentration measurement (mass/volume) 35 g/dL 32-36 Automated erythrocyte distribution width ratio 14. 3 % 10.0- 14.5 Automated blood platelet count (count/volume) 322 10*3/uL 130-400 Automated blood platelet mean volume measurement 10.7 [foz_us] 7.4-10.4 Automated blood neutrophils/100 leukocytes 78 % 42-75 Automated blood lymphocytes/100 leukocytes 11 % 12-44 Blood monocytes/100 leukocytes 9 % 0-12 Automated blood eosinophils/100 leukocytes 1 % 0-10 Automated blood basophils/100 leukocytes 0 % 0-10 Blood neutrophils automated count (number/volume) 15.7 10*3 1.8-7.8 Blood lymphocytes automated count (number/volume) 2.3 10*3 1.0-4.0 Blood monocytes automated count (number/volume) 1. 9 10*3 0.0-1.0 Automated eosinophil count 0.2 10*3/uL 0 .0-0.3 Automated blood basophil count (count/volume) 0.0 10*3/uL 0.0-0.1 Blood type T Indirect antibody screen pa rekha - 08/10/18 17:53 ABO+Rh group OP NRG Transfusion band number [id number] NRG Blood group antibody screen NEGATIVE NR G Blood manual differential performed dete ction - 08/10/18 17:53 Blood monocytes/100 leukocytes 7 % NRG Manual blood segmented neutrophils/100 leukocytes 81 % NRG Blood band neutrophils/100 leukocytes 0 % NRG Manual blood lymphocytes/100 leukocytes 12 % NRG Manual eosinophils/100 leukocytes in nose 0 % NRG Manual blood basophils/100 leukocytes 0 % NRG Blood erythrocyte morphology finding identification NORMAL NRG Complete blood count (CBC) with automate d white blood cell (WBC) differential - 08/11/18 05:58 Blood leukocytes automated count (number/volume) 19.1 10*3/uL 4.3-11.0 Blood erythrocytes automated count (number/volume) 2.91 10*6/uL 4.35-5.85 Venous blood hemoglobin measurement (mass/volume) 9.0 g/dL 11.5-16.0 Blood hematocrit (volume fraction) 25 % 35-52 Automated erythrocyte mean corpuscular volume 87 [ foz_us] 80-99 Automated erythrocyte mean corpuscular h emoglobin (mass per erythrocyte) 31 pg 25-34 Automated erythrocyte mean corpuscular h emoglobin concentration measurement (mass/volume) 36 g/dL 32-36 Automated erythrocyte distribution width ratio 13. 8 % 10.0- 14.5 Automated blood platelet count (count/volume) 243 10*3/uL 130-400 Automated blood platelet mean volume measurement 10.9 [foz_us] 7.4-10.4 Automated blood neutrophils/100 leukocytes 72 % 42-75 Automated blood lymphocytes/100 leukocytes 18 % 12-44 Blood monocytes/100 leukocytes 9 % 0-12 Automated blood eosinophils/100 leukocytes 1 % 0-10 Automated blood basophils/100 leukocytes 0 % 0-10 Blood neutrophils automated count (number/volume) 13.7 10*3 1.8-7.8 Blood lymphocytes automated count (number/volume) 3.4 10*3 1.0-4.0 Blood monocytes automated count (number/volume) 1. 7 10*3 0.0-1.0 Automated eosinophil count 0.2 10*3/uL 0 .0-0.3 Automated blood basophil count (count/volume) 0.0 10*3/uL 0.0-0.1 Encounters ACCT No. Visit Date/Time Discharge Status Pt. Type Provider Facility Loc./Unit Complaint [id number] 06/01/2017 13:12:00 06/01/2017 14:03: 00 [id number] 08/10/2018 17:30:00 018 13:50:00 DIS Inpatient DHAVAL HALLMAN ARACELY S [facility] LDRP LABOR [id number] 08/09/2018 00:30:00 018 03:00:00 DIS Outpatient DHAVAL HALLMAN ARACELY S [facility] WSo CONTRACTIONS,PRESSURE, LOST MUCUS PLUG 5 DAYS AGO [id number] 06/27/2018 13:05:00 Document Registration [id number] 12/28/2019 12:46:00 12/28/2019 23:59 :00 DIS Outpatient Regino Alexandre [id number] 07/11/2019 10:39:00 07/11/2019 10:50: 00 [id number] 11/10/2018 17:26:00 11/10/2018 17:51: 00 DIS Outpatient Qian Lanier [id number] 11/10/2018 17:38:16 Document Registration [id number] 01/21/2020 17:20:00 01/21/2020 23:59: 59 CLS Outpatient FLOR CLEARY LAC
--- OUTSIDE RECORDS SUMMARY | 2020-06-29 18:42 | XMS REPORT ---
Author Author Mariaelena BURGESS Organization [facility] Address [address] [place] [address] Care Team Providers Care Slumber Room Attendant Name Role Phone ADITYA CINDI Unavailable PROBLEMS Type Condition ICD9-CM Code [id number] Code Onset Dates Condition S tatus SNOMED Code Problem Anxiety F41.9 Active 47176042 Problem ADHD (attention deficit hyperactivity disorder) F9 0.9 Active 707508342 Problem Bipolar depression F31.30 Active 4 [id number] ALLERGIES No Known Allergies ENCOUNTERS Encounter Location Date Diagnosis [facility] [address] [id number] [address] [place] [id number] Sep, [facility] [address] [id number] [address] [place] [phone] Aug, Acute bronchitis J20.9 and A cute upper respiratory infection J06.9 [facility] [id number] [place] [phone] Aug, [facility] [address] [place] [phone] Jun, Acute sinusitis, recurrence not specified, unspecified location J01.90 [facility] [id number] [place] [phone] Jun, Acute sinusitis, recurrence not specified, unspecified location J01.90 and Allergic rhinitis, unspecified seasonality, unspecified trigger J30.9 [facility] [id number] [place] [phone] Jul, [facility] [id number] [place] [phone] Feb, [facility] [address] [place] [phone] Jan, [facility] [address] [phone] Dec, [facility] [id number] [place] [phone] Nov, Attention-deficit hyperactiv ity disorder, combined type F90.2 ; Unspecified mood [affective] disorder F39 and Generalized anxiety disorder F41.1 [facility] [address] [address] Nov, [facility] [address] [phone] Oct, [facility] [address] [phone] Oct, [facility] [address] [address] Sep, BCP ( control pills) in itiation Z30.011 [facility] [address] [address] Sep, [facility] [address] [address] Jul, TDAP DX V06.1 ; Insect bite 919.4 and Cellulitis 682.9 [facility] [address] [address] Jun, Bipolar I disorder 296.7 ; A DHD (attention deficit hyperactivity disorder), combined type 314.01 and Generalized anxiety disorder 300.02 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 [address] [phone] May, [facility] [address] [facility] [id number] [address] [place] [phone] May, 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 [address] [facility] [id number] [address] [place] [phone] May, ADHD (attention deficit hype ractivity disorder) 314.01 ; Anxiety 300.00 ; Bipolar affective disorder 296.80 and Allergic rhinitis 477.9 IMMUNIZATIONS No Known Immunizations SOCIAL HISTORY Never Assessed REASON FOR VISIT Cough x 2 weeks and headache. Dry cough and nothing coming up.--YASMINE Link PLAN OF CARE Activity Details Follow Up if not improving with PCP or reg follow up Reason: VITAL SIGNS Height 62 in 2018-09-18 Weight 121.4 lbs 2018-09-18 Temperature 98.1 degrees Fahrenheit 2018-09-18 Heart Rate 100 bpm 2018-09-18 Respiratory Rate 20 2018-09-18 BMI 22.20 kg/m2 2018-09-18 Blood pressure systolic 100 mmHg 2018-09-18 Blood pressure diastolic 68 mmHg 2018-09-18 MEDICATIONS Medication Instructions Dosage Frequency Start Date End Date Duration S tatus Cetirizine HCl 10 MG Orally Once a day 1 tablet 24h Aug, 30 day(s) Active Albuterol Sulfate HFA 108 (90 Base) MCG/ACT Inhalation every 4-6 hours as needed 2 puffs as needed Aug, 30 days Activ e RESULTS No Results PROCEDURES No Known procedures INSTRUCTIONS MEDICATIONS ADMINISTERED No Known Medications MEDICAL (GENERAL) HISTORY Type Description Date Medical History ADHD Medical History BIPOLAR Medical History ANXIETY Medical History Seasonal allergies Surgical History No Surgical history information Hospitalization History [facility] 2010 Hospitalization History [place] 2010 Hospitalization History childbirth 08/2018
[2020-06-29] MEDS ORDERED: NS IV 1000 ML 1,000 ML IV SCH (19:37)
--- NOTE | 2020-06-29 19:49 | ED GI ---
General Chief Complaint: Abdominal/GI Problems Stated Complaint: R SIDE PAIN Source of Information: Patient Exam Limitations: No Limitations (FRANCY FAJARDOMED STUDENT) History of Present Illness Date Seen by Provider: Jun 29, 2020 Time Seen by Provider: 19:30 Initial Comments 20 year old female presents to the ED complaining of stabbing RLQ abdominal pain. She states her pain started this morning around 10am, and became worse around 2pm. She rates her pain as a 5/10 when laying and a 9/10 when she moves. She also reports diarrhea and feeling fevers and chills. Denies seeing any blood in her stool. She states she last ate pizza around 3pm, and is not sure whether it made her pain worse. She states that she read online not to take any medications for appendicitis. She denies any previous surgeries and states that she is currently on her period. She denies any history of STDs. She states she is a previous IV drug user. Timing/Duration: 12 Hours Severity/Quality: Severe Location: RLQ Radiation: No Radiation (FRANCY FAJARDO,BUDDY STUDENT) Allergies and Home Medications Allergies Coded Allergies: No Known Drug Allergies (Unverified , 08/09/18) Home Medications Dibucaine 30 Gm Oint, 0 GM TOP UD PRN for PAIN- SEE INSTRUCTIONS Prescribed by: ARACELY PUENTES on 08/10/182006 Docusate Sodium 100 Mg Capsule, 100 MG PO BID PRN for CONSTIPATION-1ST LINE Prescribed by: ARACELY PUENTES on 08/10/182006 Ferrous Sulfate 325 Mg Tablet, 325 MG PO DAILY@0700 Prescribed by: ARACELY PUENTES on 08/10/18 2007 Hydrocodone Bit/Acetaminophen 1 Tab Tab, 1-2 TAB PO Q6HR PRN for PAIN-MODERATE Prescribed by: ARACELY PUENTES on 08/10/182006 Ibuprofen 600 Mg Tablet, 600 MG PO Q6H Prescribed by: ARACELY PUENTES on 08/10/182006 [Benzocaine/Menthol] 56 ML AEROSOL, 56 ML TP UD PRN for PAIN- SEE INSTRUCTIONS EXTERNAL USE ONLY Prescribed by: ARACELY PUENTES on 08/10/18 2007 Review of Systems Review of Systems Constitutional: chills EENTM: No Symptoms Reported Respiratory: No Symptoms Reported Cardiovascular: No Symptoms Reported Gastrointestinal: See HPI Genitourinary: See HPI Musculoskeletal: no symptoms reported Skin: no symptoms reported Psychiatric/Neurological: No Symptoms Reported Endocrine: No Symptoms Reported Hematologic/Lymphatic: No Symptoms Reported (FRANCY FAJARDO MED STUDENT) Past Mzsgctm-Mieezr-Xuxdtj Hx Patient Social History Drug of Choice: THC Type Used: Cigarettes Recent Foreign Travel: No Contact w/Someone Who Travel: No Recent Hopitalizations: No (FRANCY FAJARDO MED STUDENT) Seasonal Allergies Seasonal Allergies: No (FRANCY FAJARDO MED STUDENT) Past Medical History Surgeries: No Respiratory: No Cardiac: No Genitourinary: No Gastrointestinal: No Musculoskeletal: No Endocrine: No HEENT: No Cancer: No Psychosocial: Yes Integumentary: No Blood Disorders: No Adverse Reaction/Blood Tranf: No (FRANCY FAJARDO MED STUDENT) Family Medical History BREAST (GRANDMOTHER'S SIDE) Colon cancer (GRANDMOTHER'S SIDE) Diabetes mellitus (GRANDMOTHER'S SIDE) FH: breast cancer Physical Exam Vital Signs Vital Signs - First Documented 06/29/20 19:30 Temp 36.6 Pulse 103 Resp 18 B/P (MAP) 130/91 (104) Pulse Ox 98 O2 Delivery Room Air (FABI CASTANEDA MD) Vital Signs Capillary Refill : (FRANCY FAJARDO MED STUDENT) Height/Weight/BMI Height: 5'2.00" Weight: 140lbs. 2.0oz. 63.459693ku; 25.6 BMI Method: General Appearance: WD/WN, mild distress HEENT: PERRL/EOMI Neck: normal inspection Respiratory: lungs clear, normal breath sounds, no respiratory distress, no accessory muscle use Cardiovascular: no murmur, tachycardia Gastrointestinal: soft; No distended; rebound, tenderness (worse in RLQ) Extremities: no pedal edema, normal capillary refill Back: no CVA tenderness Neurologic/Psychiatric: no motor/sensory deficits, alert, normal mood/affect, oriented x 3 Skin: normal color, warm/dry (FRANCY FAJARDO MED STUDENT) Progress/Results/Core Measures Results/Orders Lab Results Laboratory Tests Test 06/29/20 19:34 06/29/20 20:22 Range/Units White Blood Count 8.7 4.3-11.0 10^3/uL Red Blood Count 4.46 4.35-5.85 10^6/uL Hemoglobin 13.0 11.5-16.0 G/DL Hematocrit 38 35-52 % Mean Corpuscular Volume 85 80-99 FL Mean Corpuscular Hemoglobin 29 25-34 PG Mean Corpuscular Hemoglobin Concent 34 32-36 G/DL Red Cell Distribution Width 12.7 10.0-14.5 % Platelet Count 245 130-400 10^3/uL Mean Platelet Volume 9.8 7.4-10.4 FL Neutrophils (%) (Auto) 65 42-75 % Lymphocytes (%) (Auto) 20 12-44 % Monocytes (%) (Auto) 12 0-12 % Eosinophils (%) (Auto) 2 0-10 % Basophils (%) (Auto) 0 0-10 % Neutrophils # (Auto) 5.7 1.8-7.8 X 10^3 Lymphocytes # (Auto) 1.7 1.0-4.0 X 10^3 Monocytes # (Auto) 1.1 H 0.0-1.0 X 10^3 Eosinophils # (Auto) 0.2 0.0-0.3 10^3/uL Basophils # (Auto) 0.0 0.0-0.1 10^3/uL Sodium Level 140 135-145 MMOL/L Potassium Level 3.6 3.6-5.0 MMOL/L Chloride Level 108 H 98-107 MMOL/L Carbon Dioxide Level 21 21-32 MMOL/L Anion Gap 11 5-14 MMOL/L Blood Urea Nitrogen 12 7-18 MG/DL Creatinine 0.89 0.60-1.30 MG/DL Estimat Glomerular Filtration Rate > 60 BUN/Creatinine Ratio 13 Glucose Level 100 70-105 MG/DL Calcium Level 9.2 8.5-10.1 MG/DL Corrected Calcium 9.0 8.5-10.1 MG/DL Total Bilirubin 0.2 0.1-1.0 MG/DL Aspartate Amino Transf (AST/SGOT) 22 5-34 U/L Alanine Aminotransferase (ALT/SGPT) 18 0-55 U/L Alkaline Phosphatase 67 40-136 U/L C-Reactive Protein High Sensitivity 5.88 H 0.00-0.50 MG/DL Total Protein 7.8 6.4-8.2 GM/DL Albumin 4.2 3.2-4.5 GM/DL Serum Test, Qualitative NEGATIVE NEGATIVE Urine Color YELLOW Urine Clarity CLOUDY Urine pH 7.5 5-9 Urine Specific Jackson 1.015 L 1.016-1.022 Urine Protein 1+ H NEGATIVE Urine Glucose (UA) NEGATIVE NEGATIVE Urine Ketones NEGATIVE NEGATIVE Urine Nitrite NEGATIVE NEGATIVE Urine Bilirubin NEGATIVE NEGATIVE Urine Urobilinogen 1.0 < = 1.0 MG/DL Urine Leukocyte Esterase 2+ H NEGATIVE Urine RBC (Auto) 3+ H NEGATIVE Urine RBC 5-10 H /HPF Urine WBC 5-10 H /HPF Urine Crystals PRESENT H /LPF Urine Amorphous Sediment LARGE ADRIEN PHOSPHATE H /LPF Urine Bacteria TRACE /HPF Urine Casts NONE /LPF Urine Mucus NEGATIVE /LPF Urine Culture Indicated YES Urine Opiates Screen NEGATIVE NEGATIVE Urine Oxycodone Screen NEGATIVE NEGATIVE Urine Methadone Screen NEGATIVE NEGATIVE Urine Propoxyphene Screen NEGATIVE NEGATIVE Urine Barbiturates Screen NEGATIVE NEGATIVE Ur Tricyclic Antidepressants Screen NEGATIVE NEGATIVE Urine Phencyclidine Screen NEGATIVE NEGATIVE Urine Amphetamines Screen POSITIVE H NEGATIVE Urine Methamphetamines Screen NEGATIVE NEGATIVE Urine Benzodiazepines Screen NEGATIVE NEGATIVE Urine Cocaine Screen NEGATIVE NEGATIVE Urine Cannabinoids Screen POSITIVE H NEGATIVE (FABI CASTANEDA MD) My Orders Orders - FABI CASTANEDA MD Cbc With Automated Diff (06/29/20 19:37) Comprehensive Metabolic Panel (06/29/20 19:37) Hs C Reactive Protein (06/29/20 19:37) Drug Screen Stat (Urine) (06/29/20 19:37) Hcg,Qualitative Serum (06/29/20 19:37) Ed Iv/Invasive Line Start (06/29/20 19:37) Ns Iv 1000 Ml (Sodium Chloride 0.9%) (06/29/20 19:37) Ct Abd/Pelv W (Appendicitis) (06/29/20 20:34) Iohexol Injection (Omnipaque 350 Mg/Ml 1 (06/29/20 20:45) Received Contrast (Hold Metformin- Contr (06/29/20 20:45) Ns (Ivpb) (Sodium Chloride 0.9% Ivpb Bag (06/29/20 20:45) Cephalexin Capsule (Keflex Capsule) (06/29/20 22:30) (FABI CASTANEDA MD) Medications Given in ED Current Medications Medications Dose Ordered Sig/Raegan Route Start Time Stop Time Status Last Admin Dose Admin Iohexol 100 ml ONCE ONCE IV 06/29/20 20:45 06/29/20 20:46 DC 06/29/20 20:54 75 ML Sodium Chloride 100 ml ONCE ONCE IV 06/29/20 20:45 06/29/20 20:46 DC 06/29/20 20:54 80 ML (FABI CASTANEDA MD) Vital Signs/I&O 06/29/20 19:30 Temp 36.6 Pulse 103 Resp 18 B/P (MAP) 130/91 (104) Pulse Ox 98 O2 Delivery Room Air (FABI CASTANEDA MD) Progress Progress Note : Time: 20:20 Progress Note CRP is elevated, WBC count normal. Patient would like to proceed with CT scan to assess for appendicitis (FRANCY FAJARDO MED STUDENT) Departure Impression Primary Impression: Right lower quadrant abdominal pain Additional Impressions: Epigastric abdominal pain UTI (urinary tract infection) Qualified Codes: N39.0 - Urinary tract infection, site not specified Disposition: HOME, SELF-CARE Condition: Improved Departure-Patient Inst. Decision time for Depature: 22:35 (FABI CASTANEDA MD) Referrals: [facility] (PCP/Family) Primary Care Physician Patient Instructions: Severe Abdominal Pain, Adult (DC) Add. Discharge Instructions: Drink plenty of clear liquids to stay well-hydrated. For pain you may take Tylenol (acetaminophen) up to 1000 mg every 6 hours as needed. If you have more severe pain you may add ibuprofen up to 600 mg every 6 hours as needed. Follow-up with your primary care provider after 48 hours to review your urine culture results and your urinalysis. Return to care if you have worsening symptoms or develop new symptoms such as fever, vomiting, etc. All discharge instructions reviewed with patient and/or family. Voiced understanding. Scripts Cephalexin (Keflex) 500 Mg Capsule 500 MG PO TID, #20 CAP Prov: FABI CASTANEDA MD 06/29/20 FRANCY FAJARDO,MED STUDENT Jun 29, 2020 19:48 FABI CASTANEDA MD Jun 29, 2020 22:38
[2020-06-29 19:51] LABS: BASOPHILS % (AUTO) 0 % (0-10); EOSINOPHILS # (AUTO) 0.2 10^3/uL (0.0-0.3); EOSINOPHILS % (AUTO) 2 % (0-10); HEMATOCRIT 38 % (35-52); LYMPHOCYTES # (AUTO) 1.7 X 10^3 (1.0-4.0); LYMPHOCYTES % (AUTO) 20 % (12-44); MEAN CORPUSCULAR HEMOGLOBIN 29 PG (25-34); MEAN CORPUSCULAR HGB CONC 34 G/DL (32-36); MEAN CORPUSCULAR VOLUME 85 FL (80-99); MEAN PLATELET VOLUME 9.8 FL (7.4-10.4); MONOCYTES # (AUTO) 1.1 X 10^3 (0.0-1.0); MONOCYTES % (AUTO) 12 % (0-12); NEUTROPHILS # (AUTO) 5.7 X 10^3 (1.8-7.8); NEUTROPHILS % (AUTO) 65 % (42-75); PLATELET COUNT 245 10^3/uL (130-400); RED CELL DISTRIBUTION WIDTH 12.7 % (10.0-14.5); WHITE BLOOD COUNT 8.7 10^3/uL (4.3-11.0)
[2020-06-29 20:10] LABS: ALANINE AMINOTRANSFERASE 18 U/L (0-55); ALBUMIN 4.2 GM/DL (3.2-4.5); ALKALINE PHOSPHATASE 67 U/L (40-136); BILIRUBIN,TOTAL 0.2 MG/DL (0.1-1.0); BUN/CREATININE RATIO 13; CALCIUM 9.2 MG/DL (8.5-10.1); CARBON DIOXIDE 21 MMOL/L (21-32); CHLORIDE 108 MMOL/L (98-107); CREATININE SERUM 0.89 MG/DL (0.60-1.30); GFR ESTIMATED > 60; GLUCOSE 100 MG/DL (70-105); POTASSIUM 3.6 MMOL/L (3.6-5.0); SODIUM 140 MMOL/L (135-145); TOTAL PROTEIN 7.8 GM/DL (6.4-8.2)
[2020-06-29 20:39] LABS: BILIRUBIN,URINE NEGATIVE (NEGATIVE); CLARITY,URINE CLOUDY; COLOR,URINE YELLOW; GLUCOSE, URINE (UA) NEGATIVE (NEGATIVE); KETONES,URINE NEGATIVE (NEGATIVE); LEUKOCYTE ESTERASE ,URINE 2+ (NEGATIVE); NITRITE,URINE NEGATIVE (NEGATIVE); PH,URINE 7.5 (5-9); PROTEIN,URINE 1+ (NEGATIVE)
[2020-06-29] MEDS ORDERED: NS 100 ML (IVPB) BAG IV ONE (20:45)
[2020-06-29] MEDS ORDERED: IOHEXOL 350 MG/ML 100 ML (OMNIPAQUE 350) VIAL IV ONE (20:45)
[2020-06-29] MEDS ORDERED: HOLD METFORMIN - RECEIVED CONTRAST 20 ML VIAL IV SCH (20:45)
[2020-06-29 20:50] LABS: AMORPHOUS SEDIMENT,UR LARGE AMOR PHOSPHATE /LPF
[2020-06-29 21:02] LABS: BACTERIA,URINE TRACE /HPF
[2020-06-29 21:03] LABS: AMPHETAMINE SCREEN, URINE POSITIVE (NEGATIVE); BARBITURATE SCREEN URINE NEGATIVE (NEGATIVE); BENZODIAZEPINES SCREEN URINE NEGATIVE (NEGATIVE); CANNABINOID SCREEN, URINE POSITIVE (NEGATIVE); COCAINE SCREEN URINE NEGATIVE (NEGATIVE); METHADONE STAT NEGATIVE (NEGATIVE); METHAMPHETAMINE SCREEN URINE S NEGATIVE (NEGATIVE); OPIATE SCREEN URINE NEGATIVE (NEGATIVE); OXYCODONE STAT NEGATIVE (NEGATIVE); PROPOXYPHENE STAT NEGATIVE (NEGATIVE); TRICYCLIC ANTIDEPRESSANTS SCRE NEGATIVE (NEGATIVE)
--- NOTE | 2020-06-29 21:24 | Diagnostic Imaging Report ---
PROCEDURE: CT abdomen and pelvis with contrast, rule out appendicitis. TECHNIQUE: Multiple contiguous axial images were obtained through the abdomen and pelvis after the administration of intravenous contrast. All CT scans use one or more of the following dose optimizing techniques: automated exposure control, MA and/or KvP adjustment based on patient size and exam type or iterative reconstruction. INDICATION: Right lower quadrant abdominal pain and diarrhea. COMPARISON: None. FINDINGS: The lung bases are clear. The gallbladder, solid organs, vascular structures and bowel are normal. The visualized portions of the appendix appear grossly normal. There is no inflammatory process seen within the right lower quadrant. There is no free air or free fluid. There is a tampon seen within the vaginal canal. No obvious abscess is seen. Distal ureters and urinary bladder are normal. Osseous structures are age-appropriate. IMPRESSION: 1. Visualized portions of the appendix appear grossly unremarkable. There is no inflammation within the pelvis. 2. No bowel obstruction, free air or free fluid. Dictated by: Dictated on workstation # [id number]
[2020-06-29] MEDS ORDERED: CEPHALEXIN 250 MG (KEFLEX) CAP PO ONE (22:30)
[2020-06-29] MEDS ORDERED: CEPH-507 PO (22:37)
[2020-06-29] MEDS ORDERED: KETOROLAC 30 MG/ML VIAL IVP ONE (22:45)
[2020-06-29 22:46] VITALS: BP 116/81
== END 2020-06-29 22:47 | disposition home or self-care (01) ==
LOC: EDUNIT# 18:32 → ER 18:34
DX: N39.0 Urinary tract infection, site not specified (principal); R10.13 Epigastric pain; Z80.0 Family history of malignant neoplasm of digestive organs; Z80.3 Family history of malignant neoplasm of breast
CPT/HCPCS: 36415; 74177; 80053; 80306; 81000; 84703; 85025; 86141; 87088

== ENCOUNTER 2021-08-19 05:49 | Emergency (ER) | payer MEDICAID, OTHER ==
[~2021-08-19] VITALS: Ht 157.5 cm; Wt 56.3 kg
[~2021-08-19 05:49] MED LIST changes: +CEPH-507 PO
[2021-08-19] MEDS ORDERED: CARI3CAP (06:06)
[2021-08-19] MEDS ORDERED: SUMA50TA2 (06:06)
[2021-08-19] MEDS ORDERED: TETANUS,DIPTH,PERTUSS P/F (BOOSTRIX) 0.5 ML VIAL IM ONE (06:15)
[2021-08-19] MEDS ORDERED: LIDOCAINE 1% INJ 20 ML 20 ML VIAL INJ ONE (06:15)
--- NOTE | 2021-08-19 06:18 | ED Upper Extremity ---
General Chief Complaint: Laceration Stated Complaint: RT HAND LAC Nursing Triage Note: laceration to left 1st finger. bleeding controlled. Source: patient Exam Limitations: no limitations History of Present Illness Date Seen by Provider: Aug 19, 2021 Time Seen by Provider: 06:05 Initial Comments Here with report of 2 cm laceration to the top of the left hand at the second MCP. States that she was opening something in accidentally cut herself with a knife. Denies other injuries or concerns. Onset: this morning (4 AM) Severity: mild Method of Injury: incised Modifying Factors: Improves With Rest Allergies and Home Medications Allergies Coded Allergies: No Known Drug Allergies (Unverified , 08/09/18) Patient Home Medication List Home Medication List Reviewed: Yes Cariprazine Hydrochloride (Vraylar) 3 Mg Capsule, (Reported) Entered as Reported by: ALLAN LI on 08/19/21605 Last Action: New Order Sumatriptan Succinate (Sumatriptan Succinate) 50 Mg Tablet, (Reported) Entered as Reported by: ALLAN LI on 08/19/21605 Last Action: New Order Discontinued Medications Cephalexin (Keflex) 500 Mg Capsule, 500 MG PO TID Discontinued Reason: No Longer Taking Prescribed by: FABI MANUEL on 06/29/202236 Last Action: Discontinued Dibucaine (Dibucaine) 30 Gm Oint, 0 GM TOP UD PRN for PAIN- SEE INSTRUCTIONS Discontinued Reason: No Longer Taking Prescribed by: ARACELY PUENTES on 08/10/182006 Last Action: Discontinued Docusate Sodium (Docusate Sodium) 100 Mg Capsule, 100 MG PO BID PRN for CONSTIPATION-1ST LINE Discontinued Reason: No Longer Taking Prescribed by: ARACELY PUENTES on 08/10/182006 Last Action: Discontinued Ferrous Sulfate (Ferrous Sulfate) 325 Mg Tablet, 325 MG PO DAILY@0700 Discontinued Reason: No Longer Taking Prescribed by: ARACELY PUENTES on 08/10/182006 Last Action: Discontinued Hydrocodone Bit/Acetaminophen (Lortab 5 Mg Tablet) 1 Tab Tab, 1-2 TAB PO Q6HR PRN for PAIN-MODERATE Discontinued Reason: No Longer Taking Prescribed by: ARACELY PUENTES on 08/10/182006 Last Action: Discontinued Ibuprofen (Ibu) 600 Mg Tablet, 600 MG PO Q6H Discontinued Reason: No Longer Taking Prescribed by: ARACELY PUENTES on 08/10/182006 Last Action: Discontinued [Benzocaine/Menthol] 56 ML AEROSOL, 56 ML TP UD PRN for PAIN- SEE INSTRUCTIONS Discontinued Reason: No Longer Taking Prescribed by: ARACELY PUENTES on 08/10/182006 Last Action: Discontinued Review of Systems Constitutional: No chills, No fever Respiratory: no symptoms reported Cardiovascular: no symptoms reported Skin: see HPI; No change in color; lesions Psychiatric/Neurological: No Symptoms Reported Past Lmayenp-Lalccy-Kfxbid Hx Patient Social History Tobacco Use?: Yes Tobacco type used: Cigarettes Smoking Status: Current Everyday Smoker Substance use?: Yes Substance type: Marijuana Alcohol Use?: Yes Alcohol Frequency: Couple times a week Pt feels they are or have been: No Immunizations Up To Date Tetanus Booster (TDap): Unknown Seasonal Allergies Seasonal Allergies: No Past Medical History Surgeries: No Respiratory: No Cardiac: No Genitourinary: No Gastrointestinal: No Musculoskeletal: No Endocrine: No HEENT: No Cancer: No Psychosocial: Yes Integumentary: No Blood Disorders: No Adverse Reaction/Blood Tranf: No Family Medical History Reviewed Nursing Family Hx BREAST (GRANDMOTHER'S SIDE) Colon cancer (GRANDMOTHER'S SIDE) Diabetes mellitus (GRANDMOTHER'S SIDE) FH: breast cancer Physical Exam Vital Signs Vital Signs - First Documented 08/19/21 05:57 Temp 36.0 Pulse 100 Resp 18 B/P (MAP) 130/73 (92) Pulse Ox 97 O2 Delivery Room Air Capillary Refill : Less Than 3 Seconds Height, Weight, BMI Height: 5'2.00" Weight: 140lbs. 2.0oz. [id number]; 22.00 BMI Method: General Appearance: WD/WN, no apparent distress Cardiovascular: regular rate, rhythm, no murmur Respiratory: lungs clear, normal breath sounds Neurologic/Psychiatric: alert, oriented x 3 Skin: normal color, warm/dry, other (2 cm oblique laceration to the dorsum of the left hand at the second MCP with bleeding controlled.) Procedures/Interventions Wound Location: Upper Extremities Other Wound Location Left hand second MCP area Wound Length (cm): 2 Wound's Depth, Shape: superficial, linear Wound Explored: contaminated Irrigated w/ Saline (ccs): 50 Betadine Prep?: Yes Anesthesia: 1% Lidocaine Volume Anesthetic (ccs): 3 Wound Debrided: minimal Suture: Prolene Suture Size: 4-0 Number of Sutures: 4 Layer Closure?: 1 Number Deep Layer Sutures: 0 Sterile Dressing Applied?: Yes Progress Cleaned, anesthetized and sutured with simple interrupted sutures. Cover with antibiotic ointment and dressing. Tolerated procedure well with no complications. Progress/Results/Core Measures Results/Orders My Orders Orders - AKIL GAINES MD Dipht,Pertuss(Acell),Tet Adult (Boostrix (08/19/21 06:15) Lidocaine 1% Inj 20 Ml (Xylocaine 1% Inj (08/19/21 06:15) Medications Given in ED Current Medications Medications Dose Ordered Sig/Raegan Route Start Time Stop Time Status Last Admin Dose Admin Diphtheria/ Tetanus/Acell Pertussis 0.5 ml ONCE ONCE IM 08/19/21 06:15 08/19/21 06:16 DC 08/19/21 06:15 0.5 ML Lidocaine HCl 20 ml ONCE ONCE INJ 08/19/21 06:15 08/19/21 06:16 DC 08/19/21 06:19 20 ML Vital Signs/I&O 08/19/21 08/19/21 05:57 06:38 Temp 36.0 36.5 Pulse 100 89 Resp 18 18 B/P (MAP) 130/73 (92) 128/69 Pulse Ox 97 99 O2 Delivery Room Air Room Air Blood Pressure Mean: 92 Progress Progress Note : Progress Note Seen and evaluated. Tetanus updated. Wound cleaned and sutured. Discharged home with return precautions. Patient verbalized understanding instructions and agreement with plan. Departure Impression Primary Impression: Laceration of left hand without complication, excluding fingers Qualified Codes: S61.412A - Laceration without foreign body of left hand, initial encounter Disposition: 01 HOME, SELF-CARE Condition: Improved Departure-Patient Inst. Decision time for Depature: 06:16 Referrals: [facility] (PCP/Family) Primary Care Physician Patient Instructions: Laceration Repair With Stitches (DC) Add. Discharge Instructions: All discharge instructions reviewed with patient and/or family. Voiced understanding. Sutures out in 10 days. You may use antibiotic ointment and dressing over wound and change that once or twice daily as needed for the next 4 to 5 days. You may use dry dressing after that. Keep wound clean. You may shower but do not soak the wound in any body of water. Wash with gentle soap and water and pat dry. Return for worse pain, swelling, foul-smelling drainage, red streaks up the hand or other concerns as needed. You may use Tylenol/acetaminophen and/or ibuprofen as needed for pain per package directions. AKIL GAINES MD Aug 19, 2021 06:18
[2021-08-19 06:38] VITALS: BP 128/69
== END 2021-08-19 06:40 | disposition home or self-care (01) ==
LOC: EDUNIT# 05:49 → ER 05:53
DX: S61.211A Laceration without foreign body of left index finger without damage to nail, initial encounter (principal); F17.210 Nicotine dependence, cigarettes, uncomplicated; Z23 Encounter for immunization; W26.0XXA Contact with knife, initial encounter
CPT/HCPCS: 12001; 90471; 90715

== ENCOUNTER 2022-04-21 13:59 | Emergency (ER) | payer MEDICAID ==
[~2022-04-21 13:59] MED LIST changes: +CARI3CAP; +SUMA50TA2
[2022-04-21 14:17] VITALS: BP 110/78
[2022-04-21] MEDS ORDERED: NS IV 1000 ML 1,000 ML IV STA (14:25)
--- NOTE | 2022-04-21 14:29 | ED Abdominal Pain ---
General Chief Complaint: Abdominal/GI Problems Stated Complaint: ABD PAIN Source of Information: Patient Exam Limitations: No Limitations History of Present Illness Date Seen by Provider: Apr 21, 2022 Time Seen by Provider: 14:27 Initial Comments Patient is a 21-year-old female who presents ED with abdominal pain, diarrhea and nausea with headache. Symptoms started this morning when she woke up. Started having a sharp stabbing pain in her right upper quadrant without radiation. Increasing pain over the past hour. This pain did become worse after eating a bag of chips. Nausea without vomiting. 2-3 episodes of watery diarrhea without any blood or mucus. No history of previous abdominal surgery. She states she felt warm and concern for fever. She reports frontal head pain with a history of migraines. Today's head pain feels different. Last menstrual cycle was April 08. Denies of any vaginal bleeding, dysuria, hematuria, increased urine frequency, sore throat, cough, chest pain, ear pain. She states she did have COVID in November. Allergies and Home Medications Allergies Coded Allergies: No Known Drug Allergies (Unverified , 08/09/18) Patient Home Medication List Home Medication List Reviewed: Yes Cariprazine Hydrochloride (Vraylar) 3 Mg Capsule, (Reported) Entered as Reported by: ALLAN LI on 08/19/21605 Sumatriptan Succinate (Sumatriptan Succinate) 50 Mg Tablet, (Reported) Entered as Reported by: ALLAN LI on 08/19/21605 Review of Systems Review of Systems Constitutional: chills; No diaphoresis; malaise, weakness Respiratory: Denies Cough, Denies Orthopnea, Denies Shortness of Air Cardiovascular: Denies Chest Pain Gastrointestinal: Abdominal Pain, Diarrhea, Nausea; Denies Vomiting Genitourinary: Denies Burning, Denies Discharge Musculoskeletal: No back pain, No joint pain Skin: No change in color, No change in hair/nails All Other Systems Reviewed Negative Unless Noted: Yes Past Sedhzda-Cuqbnu-Cydkos Hx Patient Social History Tobacco Use?: No Use of E-Cig and/or Vaping dev: Yes E-Cig or Vaping type used: Nicotine Substance use?: No Alcohol Use?: Yes Alcohol type: Beer Alcohol Frequency: Rarely Pt feels they are or have been: No Immunizations Up To Date Tetanus Booster (TDap): Unknown Influenza Vaccine Up-to-Date: Yes; Up-to-Date Seasonal Allergies Seasonal Allergies: No Past Medical History Surgery/Hospitalization HX: gerd, bipolar, adhd, ptsd, anxiety Surgeries: No Respiratory: No Cardiac: No Genitourinary: No Gastrointestinal: No Musculoskeletal: No Endocrine: No HEENT: No Cancer: No Psychosocial: Yes Integumentary: No Blood Disorders: No Adverse Reaction/Blood Tranf: No Family Medical History BREAST (GRANDMOTHER'S SIDE) Colon cancer (GRANDMOTHER'S SIDE) Diabetes mellitus (GRANDMOTHER'S SIDE) FH: breast cancer Physical Exam Vital Signs Vital Signs - First Documented 04/21/22 14:17 Temp 36.8 Pulse 80 Resp 14 B/P (MAP) 110/78 (89) Capillary Refill : Height/Weight/BMI Height: 5'2.00" Weight: 140lbs. 2.0oz. [id number]; 22.00 BMI Method: General Appearance: WD/WN, no apparent distress HEENT: PERRL/EOMI, normal ENT inspection, TMs normal, pharynx normal Neck: non-tender, full range of motion, supple Respiratory: chest non-tender, lungs clear, normal breath sounds Cardiovascular: regular rate, rhythm, no edema, no gallop, no JVD Gastrointestinal: normal bowel sounds, non tender, no organomegaly, no puls atile mass, tenderness (Right upper quadrant tenderness. Umbilicus tenderness. Normal bowel sound throughout. 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 II-XII nml as tested, no motor/sensory deficits, alert, normal mood/affect, oriented x 3 Skin: normal color Procedures/Interventions Suture Size: 4-0 Progress/Results/Core Measures Results/Orders Lab Results Laboratory Tests Test 04/21/22 14:26 04/21/22 14:29 Range/Units White Blood Count 6.1 4.3-11.0 10^3/uL Red Blood Count 4.45 3.80-5.11 10^6/uL Hemoglobin 13.2 11.5-16.0 g/dL Hematocrit 39 35-52 % Mean Corpuscular Volume 89 80-99 fL Mean Corpuscular Hemoglobin 30 25-34 pg Mean Corpuscular Hemoglobin Concent 34 32-36 g/dL Red Cell Distribution Width 12.9 10.0-14.5 % Platelet Count 225 130-400 10^3/uL Mean Platelet Volume 9.4 9.0-12.2 fL Immature Granulocyte % (Auto) 0 % Neutrophils (%) (Auto) 44 42-75 % Lymphocytes (%) (Auto) 40 12-44 % Monocytes (%) (Auto) 11 0-12 % Eosinophils (%) (Auto) 4 0-10 % Basophils (%) (Auto) 1 0-10 % Neutrophils # (Auto) 2.7 1.8-7.8 10^3/uL Lymphocytes # (Auto) 2.5 1.0-4.0 10^3/uL Monocytes # (Auto) 0.7 0.0-1.0 10^3/uL Eosinophils # (Auto) 0.2 0.0-0.3 10^3/uL Basophils # (Auto) 0.1 0.0-0.1 10^3/uL Immature Granulocyte # (Auto) 0.0 0.0-0.1 10^3/uL Sodium Level 138 135-145 MMOL/L Potassium Level 3.6 3.6-5.0 MMOL/L Chloride Level 106 98-107 MMOL/L Carbon Dioxide Level 20 L 21-32 MMOL/L Anion Gap 12 5-14 MMOL/L Creatinine 0.79 0.60-1.30 MG/DL Estimat Glomerular Filtration Rate 108 Glucose Level 93 70-105 MG/DL Calcium Level 8.9 8.5-10.1 MG/DL Corrected Calcium 8.7 8.5-10.1 MG/DL Total Bilirubin 0.3 0.1-1.0 MG/DL Alkaline Phosphatase 69 40-136 U/L Total Protein 7.0 6.4-8.2 GM/DL Albumin 4.2 3.2-4.5 GM/DL My Orders Orders - NIMISHA BELTRE Ua Culture If Indicated (04/21/22 14:16) Hcg,Qualitative Urine (04/21/22 14:16) Cbc With Automated Diff (04/21/22 14:25) Comprehensive Metabolic Panel (04/21/22 14:25) Lipase (04/21/22 14:25) Ondansetron Injection (Zofran Injectio (04/21/22 14:30) Ketorolac Injection (Toradol Injection) (04/21/22 14:30) Ns Iv 1000 Ml (Sodium Chloride 0.9%) (04/21/22 14:25) Covid 19 Inhouse Test (04/21/22 14:38) Influenza A And B By Pcr (04/21/22 14:38) Vital Signs/I&O 04/21/22 14:17 Temp 36.8 Pulse 80 Resp 14 B/P (MAP) 110/78 (89) Departure Communication (PCP) Patient with right upper quadrant and umbilicus pain. She has no right lower quadrant or left lower quadrant. Last menstrual cycle was 2 weeks ago. Did not obtain a urine. Unclear if she is . She is not concerned for . No vaginal discharge or urinary symptoms. Right after IV was started patient decided she wanted to leave AMA and to go to [facility]. Unclear why she wanted to leave. I felt like we discussed with patient the plan of IV fluids, nausea medication sent for food for pain and further evaluation of the right upper quadrant and umbilicus pain with potential imaging. She has no previous abdominal surgery. She was tender to palpate but she does not fit the profile for gallbladder disease. Discuss further evaluation with ultrasound. Patient states she wanted to go to [facility]. Unclear why she made that decision. Discussed the risk such as potential surgical abdomen without her lab work returning. She acknowledges. Impression Primary Impression: Abdominal pain Disposition: AGAINST MEDICAL ADVICE Condition: Stable Departure-Patient Inst. Decision time for Depature: 15:02 Referrals: [facility] (PCP/Family) Primary Care Physician Patient Instructions: Abdominal Pain, Adult ED NIMISHA BELTRE Apr 21, 2022 14:29
[2022-04-21] MEDS ORDERED: ONDANSETRON 4 MG/2 ML (SDV) Z0FRAN IVP ONE (14:30)
[2022-04-21] MEDS ORDERED: KETOROLAC 30 MG/ML VIAL IVP ONE (14:30)
[2022-04-21 14:36] LABS: BASOPHILS # (AUTO) 0.1 10^3/uL (0.0-0.1); BASOPHILS % (AUTO) 1 % (0-10); EOSINOPHILS # (AUTO) 0.2 10^3/uL (0.0-0.3); EOSINOPHILS % (AUTO) 4 % (0-10); HEMATOCRIT 39 % (35-52); HEMOGLOBIN 13.2 g/dL (11.5-16.0); LYMPHOCYTES # (AUTO) 2.5 10^3/uL (1.0-4.0); LYMPHOCYTES % (AUTO) 40 % (12-44); MEAN CORPUSCULAR HEMOGLOBIN 30 pg (25-34); MEAN CORPUSCULAR HGB CONC 34 g/dL (32-36); MEAN CORPUSCULAR VOLUME 89 fL (80-99); MEAN PLATELET VOLUME 9.4 fL (9.0-12.2); MONOCYTES # (AUTO) 0.7 10^3/uL (0.0-1.0); MONOCYTES % (AUTO) 11 % (0-12); NEUTROPHILS # (AUTO) 2.7 10^3/uL (1.8-7.8); NEUTROPHILS % (AUTO) 44 % (42-75); PLATELET COUNT 225 10^3/uL (130-400); WHITE BLOOD COUNT 6.1 10^3/uL (4.3-11.0)
[2022-04-21 14:53] LABS: ALBUMIN 4.2 GM/DL (3.2-4.5); POTASSIUM 3.6 MMOL/L (3.6-5.0)
[2022-04-21 14:54] LABS: CALCIUM 8.9 MG/DL (8.5-10.1)
[2022-04-21 14:57] LABS: BILIRUBIN,TOTAL 0.3 MG/DL (0.1-1.0)
[2022-04-21 14:59] LABS: CREATININE SERUM 0.79 MG/DL (0.60-1.30)
== END 2022-04-21 14:42 | disposition left against medical advice (07) ==
LOC: EDUNIT# 13:59 → ER 14:00
DX: R10.11 Right upper quadrant pain (principal); R10.33 Periumbilical pain; F17.290 Nicotine dependence, other tobacco product, uncomplicated; Z20.822 Contact with and (suspected) exposure to COVID-19
CPT/HCPCS: 36415; 80053; 83690; 85025; 87636

== ENCOUNTER 2022-04-28 12:41 | Emergency (ER) | payer MEDICAID ==
[~2022-04-28] VITALS: Ht 155 cm; Wt 63.5 kg
[2022-04-28] MEDS ORDERED: NS IV 1000 ML 1,000 ML IV STA (12:57)
[2022-04-28] MEDS ORDERED: diphenhydrAMINE 50 MG/ML INJ (BENADRYL) IVP ONE (13:00)
[2022-04-28] MEDS ORDERED: PROCHLORPERAZINE 10 MG/2ML INJ (COMPAZINE) IV ONE (13:00)
[2022-04-28] MEDS ORDERED: KETOROLAC 30 MG/ML VIAL IVP ONE (13:00)
--- NOTE | 2022-04-28 13:01 | ED Headache ---
General Chief Complaint: Abdominal/GI Problems Stated Complaint: HEADACHE - N/V - COUGH - CHILLS Nursing Triage Note: This patient arrives via private vehicle and ambulates to room 09. Patient states that she has had a migraine, cough, and vomiting for two days. Source: patient Exam Limitations: no limitations History of Present Illness Date Seen by Provider: Apr 28, 2022 Time Seen by Provider: 12:59 Initial Comments Patient is a 21-year-old female who presents ED with flulike symptoms. She reports body aches, chills, cough and headache. Symptoms started 2 days ago. She reports a light headache to the top part of her head. Increase intensity over the past 2 days. Sensitive light with vomiting. Every time she eats she vomits. She reports a mild cough without chest pain shortness of breath fever, diarrhea, abdominal pain. She is not up-to-date her COVID-vaccine. No one else at home with similar symptoms. She states she has a history of migraine but states this feels different. Denies of any recent travels, surgeries. Has been taking ibuprofen without much improvement. She states she feels dehydrated she denies ear pain, sore throat, dysuria. Last menstrual cycle was April 09. Denies worst headache of her life Allergies and Home Medications Allergies Coded Allergies: No Known Drug Allergies (Unverified , 08/09/18) Patient Home Medication List Home Medication List Reviewed: Yes Cariprazine Hydrochloride (Vraylar) 3 Mg Capsule, (Reported) Entered as Reported by: ALLAN LI on 08/19/21605 Sumatriptan Succinate (Sumatriptan Succinate) 50 Mg Tablet, (Reported) Entered as Reported by: ALLAN LI on 08/19/21605 Review of Systems Review of Systems Constitutional: chills; No diaphoresis; malaise, weakness Eyes: Denies Blurred Vision, Denies Drainage, Denies Decreased Acuity; Photophobia Ears, Nose, Mouth, Throat: denies ear pain, denies ear discharge Gastrointestinal: No abdominal pain, No diarrhea; nausea, vomiting Genitourinary: No decreased output, No discharge Musculoskeletal: No back pain, No joint pain Skin: No change in color, No change in hair/nails All Other Systems Reviewed Negative Unless Noted: Yes Past Hyhywsq-Qsbfth-Tpfpwi Hx Patient Social History Tobacco Use?: Yes Smoking Status: Current Everyday Smoker Use of E-Cig and/or Vaping dev: Yes E-Cig or Vaping type used: Nicotine Use of E-Cig and/or Vaping Samson: Current Everyday User Substance use?: No Alcohol Use?: No Pt feels they are or have been: No Immunizations Up To Date Tetanus Booster (TDap): Unknown First/Initial COVID19 Vaccinat: Declined Seasonal Allergies Seasonal Allergies: No Past Medical History Surgery/Hospitalization HX: None stated. Surgeries: No Respiratory: No Cardiac: No Last Menstrual Period: April 12, 2022 Genitourinary: No Gastrointestinal: No Musculoskeletal: No Endocrine: No HEENT: No Cancer: No Psychosocial: Yes Integumentary: No Blood Disorders: No Adverse Reaction/Blood Tranf: No Family Medical History BREAST (GRANDMOTHER'S SIDE) Colon cancer (GRANDMOTHER'S SIDE) Diabetes mellitus (GRANDMOTHER'S SIDE) FH: breast cancer Physical Exam Vital Signs Vital Signs - First Documented 04/28/22 12:50 Temp 36.8 Pulse 78 Resp 15 B/P (MAP) 114/81 (92) Pulse Ox 100 O2 Delivery Room Air Capillary Refill : Less Than 3 Seconds Height, Weight, BMI Height: 5'2.00" Weight: 140lbs. 2.0oz. [id number]; 26.00 BMI Method: General Appearance: WD/WN, no apparent distress HEENT: PERRL/EOMI, normal ENT inspection, TMs normal, pharynx normal Neck: non-tender, full range of motion, supple, normal inspection Cardiovascular: regular rate, rhythm, no edema, no gallop, no JVD Respiratory: chest non-tender, lungs clear, normal breath sounds, no respiratory distress, no accessory muscle use Gastrointestinal: normal bowel sounds, non tender, soft, no organomegaly Back: normal inspection, no CVA tenderness Extremities: normal range of motion, non-tender, normal inspection, no pedal edema Skin: normal color, warm/dry Lymphatic: no adenopathy Procedures/Interventions Suture Size: 4-0 Progress/Results/Core Measures Results/Orders Lab Results Laboratory Tests Test 04/28/22 12:50 04/28/22 12:55 04/28/22 13:21 Range/Units Influenza Type A (RT-PCR) Not Detected Not Detecte Influenza Type B (RT-PCR) Not Detected Not Detecte SARS-CoV-2 RNA (RT-PCR) Not Detected Not Detecte White Blood Count 5.6 4.3-11.0 10^3/uL Red Blood Count 4.62 3.80-5.11 10^6/uL Hemoglobin 13.8 11.5-16.0 g/dL Hematocrit 41 35-52 % Mean Corpuscular Volume 89 80-99 fL Mean Corpuscular Hemoglobin 30 25-34 pg Mean Corpuscular Hemoglobin Concent 34 32-36 g/dL Red Cell Distribution Width 13.1 10.0-14.5 % Platelet Count 202 130-400 10^3/uL Mean Platelet Volume 9.4 9.0-12.2 fL Immature Granulocyte % (Auto) 0 % Neutrophils (%) (Auto) 41 L 42-75 % Lymphocytes (%) (Auto) 43 12-44 % Monocytes (%) (Auto) 10 0-12 % Eosinophils (%) (Auto) 5 0-10 % Basophils (%) (Auto) 1 0-10 % Neutrophils # (Auto) 2.3 1.8-7.8 10^3/uL Lymphocytes # (Auto) 2.4 1.0-4.0 10^3/uL Monocytes # (Auto) 0.6 0.0-1.0 10^3/uL Eosinophils # (Auto) 0.3 0.0-0.3 10^3/uL Basophils # (Auto) 0.0 0.0-0.1 10^3/uL Immature Granulocyte # (Auto) 0.0 0.0-0.1 10^3/uL Sodium Level 138 135-145 MMOL/L Potassium Level 4.5 3.6-5.0 MMOL/L Chloride Level 106 98-107 MMOL/L Carbon Dioxide Level 23 21-32 MMOL/L Anion Gap 9 5-14 MMOL/L Blood Urea Nitrogen 10 7-18 MG/DL Creatinine 0.78 0.60-1.30 MG/DL Estimat Glomerular Filtration Rate 109 BUN/Creatinine Ratio 13 Glucose Level 97 70-105 MG/DL Calcium Level 9.3 8.5-10.1 MG/DL Corrected Calcium 9.1 8.5-10.1 MG/DL Total Bilirubin 0.6 0.1-1.0 MG/DL Aspartate Amino Transf (AST/SGOT) 23 5-34 U/L Alanine Aminotransferase (ALT/SGPT) 18 0-55 U/L Alkaline Phosphatase 69 40-136 U/L C-Reactive Protein High Sensitivity 0.13 0.00-0.50 MG/DL Total Protein 7.4 6.4-8.2 GM/DL Albumin 4.3 3.2-4.5 GM/DL Serum Test, Qualitative NEGATIVE NEGATIVE Urine Color YELLOW Urine Clarity CLEAR Urine pH 6.5 5-9 Urine Specific [place] 1.025 H 1.016-1.022 Urine Protein NEGATIVE NEGATIVE Urine Glucose (UA) NEGATIVE NEGATIVE Urine Ketones NEGATIVE NEGATIVE Urine Nitrite NEGATIVE NEGATIVE Urine Bilirubin NEGATIVE NEGATIVE Urine Urobilinogen 0.2 < = 1.0 MG/DL Urine Leukocyte Esterase NEGATIVE NEGATIVE Urine RBC (Auto) NEGATIVE NEGATIVE Urine RBC NONE /HPF Urine WBC 0-2 /HPF Urine Squamous Epithelial Cells 10-25 H /HPF Urine Crystals PRESENT H /LPF Urine Amorphous Sediment FEW ADRIEN URATES H /LPF Urine Bacteria MODERATE H /HPF Urine Casts NONE /LPF Urine Mucus SMALL H /LPF Urine Culture Indicated YES My Orders Orders - NIMISHA BELTRE Cbc With Automated Diff (04/28/22 12:57) Comprehensive Metabolic Panel (04/28/22 12:57) Hs C Reactive Protein (04/28/22 12:57) Ns Iv 1000 Ml (Sodium Chloride 0.9%) (04/28/22 12:57) Prochlorperazine Injection (Compazine In (04/28/22 13:00) Diphenhydramine Injection (Benadryl Inje (04/28/22 13:00) Ketorolac Injection (Toradol Injection) (04/28/22 13:00) Covid 19 Inhouse Test (04/28/22 12:59) Influenza A And B By Pcr (04/28/22 12:59) Hcg,Qualitative Serum (04/28/22 13:02) Ua Culture If Indicated (04/28/22 13:02) Urine Culture (04/28/22 13:21) Medications Given in ED Current Medications Medications Dose Ordered Sig/Raegan Route Start Time Stop Time Status Last Admin Dose Admin Diphenhydramine HCl 25 mg ONCE ONCE IVP 04/28/22 13:00 04/28/22 13:01 DC 04/28/22 13:15 25 MG Ketorolac Tromethamine 30 mg ONCE ONCE IVP 04/28/22 13:00 04/28/22 13:01 DC 04/28/22 13:14 30 MG Prochlorperazine Edisylate 10 mg ONCE ONCE IV 04/28/22 13:00 04/28/22 13:01 DC 04/28/22 13:14 10 MG Vital Signs/I&O 04/28/22 04/28/22 12:50 13:54 Temp 36.8 37.2 Pulse 78 78 Resp 15 16 B/P (MAP) 114/81 (92) 125/81 Pulse Ox 100 99 O2 Delivery Room Air Room Air Blood Pressure Mean: 92 Departure Communication (PCP) Patient neuro exam unremarkable. History of migraines states his head pain feels different. Denies worst headache of her life. Afebrile. No meningeal signs. Mild body aches chills and cough. No wheezing, chest pain, abdominal pain. Urinalysis negative for infection. Negative for COVID influenza negative. Lab work was otherwise unremarkable. Was given migraine cocktail with resolution of pain. She does have associated photophobia. Symptoms may be related to migraine or a viral syndrome. She was feeling much b je after liter fluid and migraine cocktail. Provided outpatient follow-up. She wanted me to contact her risk officer states she was here. Recommends follow-up at [facility] today. Continue with conservative treatment at home. If any worsening symptoms return back to ED for further evaluation Impression Primary Impression: Headache Disposition: 01 HOME, SELF-CARE Condition: Stable Departure-Patient Inst. Decision time for Depature: 13:42 Referrals: [facility] (PCP/Family) Primary Care Physician Patient Instructions: Home Headache Remedies Add. Discharge Instructions: Patient was seen here in the ED. Patient lab work otherwise unremarkable. Negative for influenza and COVID. Migraine versus viral etiology. Recommend anti-inflammatories at home. Recommend rest. Recommend hydration All discharge instructions reviewed with patient and/or family. Voiced understanding. Work/School Note: Work Release Form Date Seen in the Emergency Department: Apr 28, 2022 Return to Work: Apr 30, 2022 NIMISHA BELTRE Apr 28, 2022 13:01
[2022-04-28 13:18] LABS: BASOPHILS % (AUTO) 1 % (0-10); EOSINOPHILS # (AUTO) 0.3 10^3/uL (0.0-0.3); EOSINOPHILS % (AUTO) 5 % (0-10); HEMATOCRIT 41 % (35-52); HEMOGLOBIN 13.8 g/dL (11.5-16.0); LYMPHOCYTES # (AUTO) 2.4 10^3/uL (1.0-4.0); LYMPHOCYTES % (AUTO) 43 % (12-44); MEAN CORPUSCULAR HEMOGLOBIN 30 pg (25-34); MEAN CORPUSCULAR HGB CONC 34 g/dL (32-36); MEAN CORPUSCULAR VOLUME 89 fL (80-99); MEAN PLATELET VOLUME 9.4 fL (9.0-12.2); MONOCYTES # (AUTO) 0.6 10^3/uL (0.0-1.0); MONOCYTES % (AUTO) 10 % (0-12); NEUTROPHILS # (AUTO) 2.3 10^3/uL (1.8-7.8); NEUTROPHILS % (AUTO) 41 % (42-75); PLATELET COUNT 202 10^3/uL (130-400); WHITE BLOOD COUNT 5.6 10^3/uL (4.3-11.0)
[2022-04-28 13:33] LABS: ALBUMIN 4.3 GM/DL (3.2-4.5); BILIRUBIN,TOTAL 0.6 MG/DL (0.1-1.0); CALCIUM 9.3 MG/DL (8.5-10.1); CREATININE SERUM 0.78 MG/DL (0.60-1.30); POTASSIUM 4.5 MMOL/L (3.6-5.0); TOTAL PROTEIN 7.4 GM/DL (6.4-8.2)
[2022-04-28 13:37] LABS: BILIRUBIN,URINE NEGATIVE (NEGATIVE); CLARITY,URINE CLEAR; COLOR,URINE YELLOW; GLUCOSE, URINE (UA) NEGATIVE (NEGATIVE); KETONES,URINE NEGATIVE (NEGATIVE); LEUKOCYTE ESTERASE ,URINE NEGATIVE (NEGATIVE); NITRITE,URINE NEGATIVE (NEGATIVE); PH,URINE 6.5 (5-9); PROTEIN,URINE NEGATIVE (NEGATIVE)
[2022-04-28 13:51] LABS: AMORPHOUS SEDIMENT,UR FEW AMOR URATES /LPF; BACTERIA,URINE MODERATE /HPF; WBC,URINE 0-2 /HPF
[2022-04-28 13:54] VITALS: BP 125/81
== END 2022-04-28 13:54 | disposition home or self-care (01) ==
LOC: EDUNIT# 12:41 → ER 12:42
DX: R51.9 Headache, unspecified (principal); R05.1 Acute cough; R68.83 Chills (without fever); F17.210 Nicotine dependence, cigarettes, uncomplicated; F17.290 Nicotine dependence, other tobacco product, uncomplicated; Z86.69 Personal history of other diseases of the nervous system and sense organs; Z20.822 Contact with and (suspected) exposure to COVID-19; Z32.02 Encounter for pregnancy test, result negative
CPT/HCPCS: 36415; 80053; 81000; 84703; 85025; 86141; 87088; 87636

== ENCOUNTER 2023-04-06 21:50 | Emergency (ER) | payer MEDICAID ==
[~2023-04-06] VITALS: Ht 155 cm; Wt 58.9 kg
[2023-04-06 22:01] VITALS: BP 121/80
== END 2023-04-06 22:56 | disposition left against medical advice (07) ==
LOC: EDUNIT# 21:50 → ER 21:51
DX: S41.152A Open bite of left upper arm, initial encounter (principal); Z28.310 Unvaccinated for COVID-19; W54.0XXA Bitten by dog, initial encounter